=== PATIENT | male | born 1940 | race Caucasian/White ===

== ENCOUNTER 2016-11-10 05:37 | Inpatient (IN) | payer MEDICARE ==
--- NOTE | 2016-11-08 07:38 | MH ---
cc: JOYCE ANDREWS M.D. DATE OF ADMISSION: 11/10/2016 ADMITTING DIAGNOSIS: The patient is a 76-year-old male who is coming for a cardiac catheterization. The patient has noted some discomfort in his chest with activity. He did have a nuclear stress test showing no reversible inferior ischemia. He has a long history of coronary artery disease having had coronary bypass grafting in 1989. At that time he has a GILLESPIE to the LAD, A SALLY to the RCA And a saphenous vein graft to the marginal branch of the circumflex. The patient did have cardiac catheterization in August 2011. He had a stent deployed in the [place] circumflex at that time. He did well following that up until recent episodes of chest pain. At the time of catheterization the LAD was totally occluded though once bypass to the right coronary artery was totally occluded in the midportion but has collaterals. The vein graft to the circumflex was a totally occluded. It is known that the right internal mammary artery is totally occluded. PAST MEDICAL HISTORY/ALLERGIES: None known. MEDICATIONS 1. Metoprolol succinate 100 mg a day. 2. Hydrochlorothiazide 12.5 mg a day. 3. Benazepril 40 mg a day. 4. Atorvastatin 40 mg a day. 5. Amlodipine 10 mg a day. 6. Aspirin 81 mg a day. 7. Meloxicam 15 mg a day 8. Fish oil p.o. 9. Nitro. PAST SURGICAL HISTORY: In addition to this heart surgeries. 1. Tonsillectomy. 2. Cataracts 3. Ear surgery. FAMILY HISTORY: Family history is father of heart disease at the age of 75. His mother old age at the age of 85. SOCIAL HISTORY The patient stopped smoking in 1989. He is . Dr. Vanessa is his primary care physician. He worked on [employer]. PHYSICAL EXAMINATION: IN GENERAL: On examination pleasant cooperative male resting comfortably in no distress. HEAD, EYES, EARS, NOSE, AND THROAT: Pupils react to light. Fundi not examined. Tongue is moist midline. LUNGS: The lungs were clear. HEART: There is grade 1 systolic murmur. ABDOMEN: The abdomen is soft no liver or spleen palpable. He has weakly palpable distal pulses. He does wear hearing aid. IMPRESSION 1. Angina pectoris. 2. Status post coronary bypass grafting 1989 and prior stenting of circumflex. 3. Hypertension. 4. Hyperlipidemia. PLAN Diagnostic catheterization and possible intervention. MD SAMIA Tena/joie /11:42 AM /7:35 AM
[2016-11-10] VITALS (10 sets, daily range): BP systolic 99–155; BP diastolic 45–95; PULSE 65–81; RESP 17–20; TEMP 97.9–98.2; O2SAT 95–99
[~2016-11-10 05:37] MED LIST: 1-ME1LIQ PO; ASPI81 PO; BENA40TA PO; CLOP75 PO; FISH1000 PO; HYDR-2768 PO; LIPI40TA PO; NIAC500T5 PO; TOPR50TA PO
[2016-11-10 06:15] LABS: AUTOMATED NEUTROPHIL # 4.8 TH/MM3 (1.8-7.7); BASOPHIL # 0.1 TH/MM3 (0-0.2); EOSINOPHIL # 0.5 TH/MM3 (0-0.4); EOSINOPHIL % 5.7 % (0.0-4.0); HEMATOCRIT 46.3 % (39.0-51.0); HEMO FLAGS DIFF FINAL; LYMPH % 20.3 % (9.0-44.0); LYMPHOCYTE # 1.6 TH/MM3 (1.0-4.8); MEAN CELL VOLUME 94.4 FL (80.0-100.0); MEAN CORPUSCULAR HEMOGLOBIN 32.4 PG (27.0-34.0); MEAN CORPUSCULAR HGB CONC 34.3 % (32.0-36.0); MONO % 12.7 % (0.0-8.0); NEUT % 60.3 % (16.0-70.0); PLATELET COUNT 151 TH/MM3 (150-450); RED BLOOD COUNT 4.91 MIL/MM3 (4.50-5.90); RED CELL DISTRIBUTION WIDTH 13.9 % (11.6-17.2); WHITE BLOOD COUNT 7.9 TH/MM3 (4.0-11.0)
[2016-11-10] MEDS ORDERED: MELO-1 PO (06:19)
[2016-11-10] MEDS ORDERED: HYDR12.56 PO (06:19)
[2016-11-10] MEDS ORDERED: BENA40TA PO (06:19)
[2016-11-10] MEDS ORDERED: ASPI81TA5 PO (06:19)
[2016-11-10] MEDS ORDERED: NITR0.4S SL (06:19)
[2016-11-10] MEDS ORDERED: LIPI40TA PO (06:19)
[2016-11-10] MEDS ORDERED: METO100T9 PO (06:19)
[2016-11-10] MEDS ORDERED: AMLO10TA2 PO (06:19)
[2016-11-10 06:30] LABS: APTT (PATIENT) 28.9 SEC (24.3-30.1); INTERNATIONAL NORMALIZED RATIO 1.1 RATIO; PROTHROMBIN TIME - PATIENT 11.7 SEC (9.8-11.6)
[2016-11-10 06:42] LABS: BICARBONATE 26.4 MEQ/L (21.0-32.0); POTASSIUM 3.8 MEQ/L (3.5-5.1)
[2016-11-10] MEDS ORDERED: HEPARIN-NS/PF INJ 500 ML ONE (07:08)
[2016-11-10] MEDS ORDERED: MIDAZOLAM HCL 2 MG/2 ML VIAL ONE (07:16)
[2016-11-10] MEDS ORDERED: ENOXAPARIN SODIUM 100 MG/ML SYRINGE ONE (08:02)
[2016-11-10] MEDS ORDERED: DOPamine INJ PREMIX 500 ML ONE (08:35)
[2016-11-10] MEDS ORDERED: CLOPIDOGREL 300 MG TAB ONE (09:01)
[2016-11-10] MEDS ORDERED: MISC INFORMATION XX ONE (09:15)
[2016-11-10] MEDS: NS 1000P @30 MLS/HR (KVO) IV SCH (10:00)
[2016-11-10] MEDS ORDERED: BOSW5TAB PO (11:43)
[2016-11-10] MEDS ORDERED: DICY20TA10 PO (11:43)
[2016-11-10] MEDS ORDERED: ENOXAPARIN SODIUM 60 MG/0.6 ML SYRINGE SQ ONE ×2 (11:45→18:00)
--- NOTE | 2016-11-10 13:23 | MA ---
cc: JOYCE ANDREWS M.D. DATE 11/10/2016 PROCEDURE Left heart catheterization, coronary angiography, left internal mammary angiography, stenting of the marginal branch of the circumflex, insertion ventrally balloon pump. INDICATIONS Angina, abnormal nuclear stress test status post CABG in 1989. PROCEDURE Following Xylocaine anesthesia in the right groin, a 6-Honduran sheath was placed in the right femoral artery via Seldinger's technique. The left internal mammary could not be selectively catheterized with a left internal mammary artery catheter. The [place] right coronary was selectively catheterized. Using a 6-Honduran four right Gilberto, the left internal mammary was selectively catheterized and cineangiograms were recorded. This catheter was advanced to the left ventricle and a hand injection of contrast was performed. Using a 6-Honduran left 4 Gilberto, the left coronary was selectively catheterized and cineangiograms were recorded. The patient was given Lovenox 0.7 mg/kg intravenously. A 6-Honduran 3.5 Voda guiding catheter was positioned in the left groin area artery and an 0.014 BMW wire was advanced to the distal aspect of the marginal branch of the circumflex. There were multiple previously deployed stents in this vessel. There were multiple areas of stenosis. These were ballooned with a 3.0 balloon, however a cosmetic result was less than optimal. A 3.0 x 23 mm Resolute drug-eluting stent was deployed in the distal part of the vessel covering the 80% stenosis in the midportion. This stent could not be advanced more distally. A 3.0 x 12 mm stent could not be advanced more distally even though a 3.5 balloon was used to predilate this and a Wiggle wire replaced the BMW. The 3.0 x 12 mm was deployed proximal to the first stent. Following this, the patient developed chest pain with hypotension (60-70mmHg) and decreased flow in the distal aspect of the vessel. The patient was started on dopamine and it was elected to place an intraaortic balloon pump. The pressure did improve and he was taken off dopamine. He was transported to intensive care with the balloon pump in place. Chest pain had markedly decreased. It was elected to stop though the distal flow in OM was HILARIO 0. It was felt that distal embolization may be the culprit and it would resolve. HEMODYNAMIC RESULTS Central aortic pressure 146/62. Left ventricular pressure 146/16. There was no gradient on pullback across the aortic valve. Left ventriculogram was suboptimal. There was a hand injection of contrast. The ejection fraction appeared to be about 40- 45%. BYPASS GRAFTS 1. The patient has a patent left internal mammary to the LAD. There is good filling of the target vessel. 2. The right internal mammary was not injected, but is known to be occluded. 3. Vein graft to the circumflex is known to be occluded. [place] CORONARY ARTERIES 1. The left main coronary is normal. 2. The left anterior descending is totally occluded in the Midportion. 3. Circumflex has a large marginal branch with multiple previously deployed stents. There were significant area stenosis with the proximal portion of 60-70%, midportion 80% and more distally 80% just prior to a bifurcation. Two of the stents were deployed as described above. Vessel was occlude distal to these stents. 4. The right coronary artery is totally occluded proximally with faint collateral filling. FINAL DIAGNOSES 1. Three-vessel coronary artery disease as described above. 2. Patent left internal mammary to LAD with all other grafts being occluded. 3. Diffuse significant in-stent stenosis in the marginal branch of the circumflex. This was angioplastied and stented though results suboptimal as described above. MD SAMIA Tena/PARKER /10:19 AM /1:02 PM MORIAH
--- NOTE | 2016-11-10 13:47 | EKG ---
Date Performed: 11/10/2016 Time Performed: 11:14:50 PTAGE: 76 years EKG: Sinus rhythm . Possible septal infarct - age undetermined Nonspecific ST segment depressions Abnormal ECG COMPARED TO PRIOR ELECTROCARDIOGRAM, ST segment changes are present. PREVIOUS TRACING : 11/10/2016 06.16 DOCTOR: Guerrero Olivares Interpretating Date/Time 11/10/2016 13:43:36
--- NOTE | 2016-11-10 13:58 | EKG ---
Date Performed: 11/10/2016 Time Performed: 06:16:48 PTAGE: 76 years EKG: Sinus rhythm . Poor R wave progression - probable normal variant Borderline ECG Compared to prior tracing no signi ficant change PREVIOUS TRACING : 09/13/2011 04.40 DOCTOR: Josep Resendiz Interpretating Date/Time 11/10/2016 13:56:32
[2016-11-10] MEDS ORDERED: METOPROLOL SUCCINATE 25 MG EXTENDED RELEASE TAB PO SCH ×2 (15:00)
[2016-11-10 15:26] LABS: BICARBONATE 25.9 MEQ/L (21.0-32.0); POTASSIUM 3.7 MEQ/L (3.5-5.1)
--- NOTE | 2016-11-10 16:44 | EC ---
Study Study Date:11/10/2016 STUDY CONCLUSIONS SUMMARY - Procedure narrative: Transthoracic echocardiography. Image quality was fair. Scanning was performed from the parasternal, apical, and subcostal acoustic windows. - Left ventricle: The cavity size was normal. Wall thickness was normal. Systolic function was normal. The estimated ejection fraction was in the range of 55% to 60%. Although no diagnostic regional wall motion abnormality was identified, this possibility cannot be completely excluded on the basis of this study. - Aortic valve: Slight leaflet sclerosis. - Mitral valve: Trace to mild regurgitation. If LV function is below 40, please consider prescribing an ACEI or ARB or document rationale for non-use. PROCEDURE DATA STUDY STATUS: Elective. Procedure: Transthoracic echocardiography. Image quality was fair. Scanning was performed from the parasternal, apical, and subcostal acoustic windows. Study completion: The patient tolerated the procedure well. Transthoracic echocardiography. M-mode, complete 2D, complete spectral Doppler, and color Doppler. Patient status: Inpatient. CARDIAC ANATOMY LEFT VENTRICLE: The cavity size was normal. Wall thickness was normal. Systolic function was normal. The estimated ejection fraction was in the range of 55% to 60%. Although no diagnostic regional wall motion abnormality was identified, this possibility cannot be completely excluded on the basis of this study. AORTIC VALVE: Slight leaflet sclerosis. Doppler: Transvalvular velocity was within the normal range. There was no stenosis. No regurgitation. Peak gradient: 12mm Hg (S). AORTA: Aortic root: The aortic root was normal in size. MITRAL VALVE: Structurally normal valve. Doppler: Transvalvular velocity was within the normal range. There was no evidence for stenosis. Trace to mild regurgitation. LEFT ATRIUM: The atrium was normal in size. RIGHT VENTRICLE: The cavity size was normal. Wall thickness was normal. PULMONIC VALVE: Doppler: Transvalvular velocity was within the normal range. There was no evidence for stenosis. No regurgitation. TRICUSPID VALVE: Structurally normal valve. Doppler: Transvalvular velocity was within the normal range. No regurgitation. PULMONARY ARTERY: The main pulmonary artery was normal-sized. Systolic pressure was within the normal range. RIGHT ATRIUM: The atrium was normal in size. PERICARDIUM: There was no pericardial effusion. SYSTEMIC VEINS: Inferior vena cava: The vessel was normal in size. BASIC MEASUREMENTS ADULT NORMAL Left ventricle LV internal dimension, ED, chordal level, 47.4 mm 43-52 PLAX LV internal dimension, ES, chordal level, 37.7 mm 23-38 PLAX Fractional shortening, chordal level, PLAX *20 % >29 LV posterior wall thickness, ED 5.75 mm IVS/LVPW ratio, ED *2.1 <1.3 Ventricular septum Septal thickness, ED 12.1 mm Aortic valve Leaflet separation 17 mm 15-26 Left atrium Anterior-posterior dimension 43 mm Right ventricle RV internal dimension, ED, PLAX 19.1 mm 19-38 BASIC MEASUREMENTS ADULT NORMAL Aortic valve Leaflet separation 17 mm 15-26 Aorta Root diameter, ED 30 mm 20-37 DOPPLER MEASUREMENTS ADULT NORMAL Aortic valve Peak velocity, S 171 cm/s Peak gradient, S 12 mm Hg Mitral valve Maximal regurgitant velocity 448 cm/s Tricuspid valve Regurgitant peak velocity 159 cm/s Peak RV-RA gradient, S 10 mm Hg Maximal regurgitant velocity 159 cm/s LEGEND: Mean values are shown as u=mean value. Asterisk (*) garcia values outside specified normal range. Prepared and signed by Sal Melton [id number]
[2016-11-10] MEDS ORDERED: IOHEXOL 350 MG/ML 100 ML BTL (for Cath Lab) OTHER ONE (16:57)
[2016-11-10] MEDS ORDERED: LISINOPRIL 5 MG TAB PO SCH (18:00)
[2016-11-10] MEDS ORDERED: ENOXAPARIN SODIUM 40 MG/0.4 ML SYRINGE SQ ONE (20:00)
[2016-11-11] VITALS (12 sets, daily range): BP systolic 123–142; BP diastolic 69–82; PULSE 74–107; RESP 18–20; TEMP 97.9–98.4; O2SAT 94–100
[2016-11-11 04:04] LABS: AUTOMATED NEUTROPHIL # 8.2 TH/MM3 (1.8-7.7); BASOPHIL # 0.1 TH/MM3 (0-0.2); BASOPHIL % 0.5 % (0.0-2.0); EOSINOPHIL # 0.2 TH/MM3 (0-0.4); EOSINOPHIL % 1.5 % (0.0-4.0); HEMATOCRIT 42.9 % (39.0-51.0); HEMO FLAGS DIFF FINAL; LYMPH % 9.7 % (9.0-44.0); MEAN CELL VOLUME 93.8 FL (80.0-100.0); MEAN CORPUSCULAR HEMOGLOBIN 31.5 PG (27.0-34.0); MEAN CORPUSCULAR HGB CONC 33.6 % (32.0-36.0); MONO % 11.2 % (0.0-8.0); NEUT % 77.1 % (16.0-70.0); PLATELET COUNT 130 TH/MM3 (150-450); RED BLOOD COUNT 4.58 MIL/MM3 (4.50-5.90); WHITE BLOOD COUNT 10.6 TH/MM3 (4.0-11.0)
[2016-11-11 04:35] LABS: CKMB 79.1 NG/ML (0.5-3.6)
[2016-11-11] MEDS: NS 1000P @30 MLS/HR (KVO) IV SCH (06:00)
--- NOTE | 2016-11-11 06:43 | PD.CARD.PN ---
Subjective Subjective Remarks Patient is doing well this morning. He is sitting in chair. No chest pain or shortness of breath. Objective Medications Current Medications Medications (Trade) Dose Ordered Sig/Misael Route Start Time Stop Time Status Last Admin (NS 1000 ml Inj) 1,000 ml @ 30 mls/hr Q24H IV 11/10/16 06:00 11/10/16 10:00 (Aspirin Chew) 81 mg DAILY PO 11/11/16 09:00 (Plavix) 75 mg DAILY PO 11/11/16 09:00 (Toprol Xl) 25 mg Q24H PO 11/10/16 15:00 11/10/16 15:13 (Lipitor) 40 mg DAILY PO 11/11/16 09:00 Vital Signs / I&O Vital Signs Date Time Temp Pulse Resp B/P Pulse Ox O2 Delivery O2 Flow Rate FiO2 11/11/16 03:00 75 11/11/16 03:00 94 Nasal Cannula 2.00 11/11/16 03:00 98.4 107 18 140/74 94 11/10/16 23:00 78 11/10/16 23:00 95 Nasal Cannula 2.00 11/10/16 23:00 97.9 77 20 132/70 95 Arterial Line 11/10/16 22:27 96 Nasal Cannula 2.00 11/10/16 19:00 98.1 81 18 145/74 96 Arterial Line 11/10/16 19:00 81 11/10/16 19:00 96 Nasal Cannula 2.00 11/10/16 17:04 11/10/16 17:04 95 Nasal Cannula 2.00 11/10/16 15:05 76 11/10/16 15:03 114/50 11/10/16 15:03 98.2 77 18 119/69 96 110/50 11/10/16 14:30 11/10/16 14:00 98/45 11/10/16 13:00 103/51 11/10/16 12:00 97 Nasal Cannula 2.00 11/10/16 12:00 93/45 11/10/16 11:02 98.1 69 18 149/95 98 99/45 11/10/16 11:02 99/45 11/10/16 11:00 70 11/10/16 10:00 97.9 71 18 135/85 96 100/53 11/10/16 10:00 100/53 4/27/17 10:00 96 Nasal Cannula 2.00 11/10/16 09:40 69 I/O 11/10/16 11/10/16 11/10/16 11/11/16 11/11/16 11/11/16 07:00 15:00 23:00 07:00 15:00 23:00 Intake Total 720 ml Output Total 550 ml Balance 170 ml Intake Oral 720 ml Output Urine Total 550 ml Physical Exam GENERAL: SKIN: Warm and dry. HEAD: Normocephalic. EYES: No scleral icterus. No injection or drainage. NECK: Supple, trachea midline. No JVD or lymphadenopathy. CARDIOVASCULAR: Regular rate and rhythm without murmurs, gallops, or rubs. groin lools fine witrh no hematoma.Weakly palpable distal pulses. RESPIRATORY: Breath sounds equal bilaterally. No accessory muscle use. GASTROINTESTINAL: Abdomen soft, non-tender, nondistended. MUSCULOSKELETAL: No cyanosis, or edema. Laboratory Laboratory Tests Test 11/10/16 11/11/16 14:38 03:54 Sodium Level 139 MEQ/L Potassium Level 3.7 MEQ/L Chloride Level 105 MEQ/L Carbon Dioxide Level 25.9 MEQ/L Anion Gap 8 MEQ/L Blood Urea Nitrogen 11 MG/DL Creatinine 0.76 MG/DL Estimat Glomerular Filtration 100 ML/MIN Rate Random Glucose 142 MG/DL Calcium Level 8.7 MG/DL Troponin I 24.40 NG/ML White Blood Count 10.6 TH/MM3 Red Blood Count 4.58 MIL/MM3 Hemoglobin 14.4 GM/DL Hematocrit 42.9 % Mean Corpuscular Volume 93.8 FL Mean Corpuscular Hemoglobin 31.5 PG Mean Corpuscular Hemoglobin 33.6 % Concent Red Cell Distribution Width 14.0 % Platelet Count 130 TH/MM3 Mean Platelet Volume 10.7 FL Neutrophils (%) (Auto) 77.1 % Lymphocytes (%) (Auto) 9.7 % Monocytes (%) (Auto) 11.2 % Eosinophils (%) (Auto) 1.5 % Basophils (%) (Auto) 0.5 % Neutrophils # (Auto) 8.2 TH/MM3 Lymphocytes # (Auto) 1.0 TH/MM3 Monocytes # (Auto) 1.2 TH/MM3 Eosinophils # (Auto) 0.2 TH/MM3 Basophils # (Auto) 0.1 TH/MM3 CBC Comment DIFF FINAL Differential Comment Total Creatine Kinase 925 U/L Creatine Kinase MB 79.1 NG/ML Creatine Kinase MB % 8.6 % Assessment and Plan Assessment and Plan Nonstemi. Hopefully OM reopened as lateral and posterior wall motion normal on echo. I will transfer today. Hopefully discharge tonight or in AM. Increase metoprolol to 50 mg daily. Code Status Full code Discussed Condition With Patient. Family here last evening and discussed with them also. Feroz Hillman MD Nov 11, 2016 06:43
[2016-11-11] MEDS ORDERED: ATORVASTATIN 40 MG TAB PO SCH (09:00)
[2016-11-11] MEDS ORDERED: CLOPIDOGREL 75 MG TAB PO SCH (09:00)
[2016-11-11] MEDS ORDERED: ASPIRIN 81 MG CHEW TAB PO SCH (09:00)
[2016-11-11] MEDS ORDERED: ENOXAPARIN SODIUM 40 MG/0.4 ML SYRINGE SQ SCH (09:00)
[2016-11-11] MEDS ORDERED: METOPROLOL SUCCINATE 25 MG EXTENDED RELEASE TAB PO SCH (15:00)
[2016-11-11] MEDS ORDERED: PLAV75TA29 PO (17:35)
[2016-11-11] MEDS ORDERED: METO25TA6 PO (17:38)
[2016-11-11] MEDS ORDERED: METOPROLOL SUCCINATE 50 MG EXTENDED RELEASE TAB PO SCH (17:45)
--- NOTE | 2016-11-14 12:37 | MD ---
cc: JOYCE ANDREWS M.D. ADMISSION DATE: 11/10/2016 DISCHARGE DATE: 11/11/2016 ADMITTING DIAGNOSIS 1. Angina pectoris. 2. Coronary artery disease. 3. Hypertension. 4. Hyperlipidemia. DISCHARGE DIAGNOSIS 1. Angina pectoris. 2. Coronary artery disease. 3. Hypertension. 4. Hyperlipidemia. 5. Non-STEMI. BRIEF HISTORY The patient is a 76-year-old male who was admitted for elective cardiac catheterization. The patient is having increasing angina which is a discomfort in the chest with activity. He had an abnormal nuclear stress test showing reversible inferior ischemia. He has a long history of coronary disease having had bypass surgery in 1989. At that time he had an SALLY to the RCA, GILLESPIE to the LAD and a saphenous vein graft to the circumflex. Follow-up catheterization in 2002 stated that the SALLY to the right coronary artery was occluded. He also had occlusion of the vein graft to the circumflex, although the GILLESPIE to the LAD was open. He has had multiple stents placed in the circumflex in the past. On examination this is a pleasant and cooperative male resting comfortably in no distress. Pupils react to light. Fundi not examined. Tongue is moist and midline. Lungs clear. He has a grade 1 systolic murmur. The abdomen is soft. He has weakly palpable distal pulses. He does wear a hearing aid. LABORATORY DATA The patient's sodium was 142, potassium 3.8, blood sugar 120, BUN 19, creatinine 0.92, hemoglobin 15.9, hematocrit 46.3, platelet count 151,000. HOSPITAL COURSE The patient was taken to the cardiac catheterization laboratory. He was found to have a patent GILLESPIE to the LAD. He had total occlusion of the LAD in the midportion. He had total occlusion of the right coronary artery proximally. The craig circumflex had multiple stents in the marginal branch. There were three areas of restenosis. The proximal areas were stented, however, stent could not be advanced to the more distal level though it was angioplastied. During the deployment of a proximal stent, the patient developed chest pain and hypotension. The angiogram showed the circumflex now had HILARIO-0 flow at the level of a previously deployed stent. It was not clear whether this was embolic debris or a possible dissection. An intra-aortic balloon pump was placed after dopamine was started. The pressure was down to 60 but after the balloon pump stabilized his chest pain did improve. He then developed elevated enzymes with a CPK of 925, a CK-MB of 79, troponin, 24.4, repeat 25.40. An electrocardiogram did not show acute changes however. He also had an echocardiogram performed after this, which showed ejection fraction of 55-60%. The posterior and lateral tena moved normally. It was felt that possibly the circumflex had re-opened. The intra-aortic balloon pump was pulled the evening of the . He had no chest pains or no problems with shortness of breath. DISCHARGE INSTRUCTIONS He is being discharged on: 1. Metoprolol succinate 50 mg a day. 2. Aspirin 81 mg a day. 3. Clopidogrel 75 mg a day. 4. Atorvastatin 80 mg a day. 5. He will resume his benazepril 40 mg a day and 6. Hydrochlorothiazide 12.5 mg a day. 7. We will hold his amlodipine at this time. 8. He will continue his meloxicam. He has been instructed to call my office for follow-up appointment within 7-10 days. He is advised to restrict activity for the next week. If he has any recurrent chest pains, he has been advised to call the office. MD SAMIA Tena/MAGALY /5:47 PM /12:24 PM
== END 2016-11-11 18:22 | disposition home or self-care (01) | DRG 271 ==
LOC: HDOC 05:37 → HDIC 05:38 → HDOC 09:14 → HDIC 09:32 → HCVR 09:40 → HCIS 11-11 11:59
PROVIDERS: ADMIT Internal Medicine Cardiovascular Disease; ATTEND Internal Medicine Cardiovascular Disease
PROC: 5A02210 Assistance with Cardiac Output using Balloon Pump, Continuous (ICD-10-PCS; 2016-11-10)
PROC: 4A023N7 Measurement of Cardiac Sampling and Pressure, Left Heart, Percutaneous Approach (ICD-10-PCS; 2016-11-10)
PROC: B2111ZZ Fluoroscopy of Multiple Coronary Arteries using Low Osmolar Contrast (ICD-10-PCS; 2016-11-10)
PROC: B2181ZZ Fluoroscopy of Left Internal Mammary Bypass Graft using Low Osmolar Contrast (ICD-10-PCS; 2016-11-10)
PROC: B2151ZZ Fluoroscopy of Left Heart using Low Osmolar Contrast (ICD-10-PCS; 2016-11-10)
PROC: 027034Z Dilation of Coronary Artery, One Artery with Drug-eluting Intraluminal Device, Percutaneous Approach (ICD-10-PCS; principal; 2016-11-10 07:30)
DX: I21.4 Non-ST elevation (NSTEMI) myocardial infarction (principal); T82.855A Stenosis of coronary artery stent, initial encounter; I95.89 Other hypotension; I25.82 Chronic total occlusion of coronary artery; I25.810 Atherosclerosis of coronary artery bypass graft(s) without angina pectoris; I25.119 Atherosclerotic heart disease of native coronary artery with unspecified angina pectoris; E78.5 Hyperlipidemia, unspecified; I10 Essential (primary) hypertension; Z87.891 Personal history of nicotine dependence; Y83.1 Surgical operation with implant of artificial internal device as the cause of abnormal reaction of the patient, or of later complication, without mention of misadventure at the time of the procedure
CPT/HCPCS: 33967; 80048; 82550; 82552; 84484; 85025; 85610; 85730; 92928; 93005; 93306; 93458; C1725; C1769; C1874; C1887; C1893; J1265; J1644; J1650; J2250; J7030; Q9967

== ENCOUNTER 2017-04-13 14:39 | Inpatient (IN) | payer MEDICARE ==
[~2017-04-13] VITALS: Ht 175.3 cm; Wt 81.4 kg
[~2017-04-13 14:39] MED LIST changes: -1-ME1LIQ PO; -ASPI81 PO; +ASPI81TA5 PO; +BOSW5TAB PO; -CLOP75 PO; +DICY20TA10 PO; -FISH1000 PO; -HYDR-2768 PO; +HYDR12.56 PO; +MELO-1 PO; +METO25TA6 PO; -NIAC500T5 PO; +NITR0.4S SL; +PLAV75TA29 PO; -TOPR50TA PO
[2017-04-13 14:45] VITALS: BP 125/61; PULSE 81; RESP 16; TEMP 98.5; O2SAT 99
[2017-04-13] MEDS ORDERED: PANTOPRAZOLE INJ 80 MG in SODIUM CHLORIDE 0.9% INJ 35 ML IV ONE (16:05)
[2017-04-13] MEDS ORDERED: SODIUM CHLOR 0.9% 1000 ML INJ 1,000 ML IV ONE (16:15)
[2017-04-13] MEDS ORDERED: SODIUM CHLORIDE 0.9% FLUSH 10 ML FLUSH IVF PRN (16:15)
--- NOTE | 2017-04-13 16:16 | PD ---
HPI Chief Complaint: GI Complaint Time Seen by Provider: 15:53 Travel History International Travel<30 days: No Contact w/Intl Traveler<30days: No Traveled to known affect area: No History of Present Illness HPI This 76-year-old male is complaining of shortness of breath and dizziness. He says he has had black stool for the past week he has a history of coronary artery disease. He had triple bypass surgery in 1989. Since then he has had about 7 stents. His last stent was last October at which time he apparently had a myocardial infarction. He had a stent placed and was told that he needs to be on Plavix for the next year. He is taking the Plavix and aspirin. Apparently he had a positive Hemoccult several months ago. He is not on any medicine for ulcer. He does take meloxicam daily he has no complaint of abdominal pain. He has not been taking Pepto-Bismol. 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) Neurologic: No Psychiatric: No Reproductive: No Respiratory: No Integumentary: No Immunizations Current: Yes Myocardial Infarction: Yes Thyroid Disease: No Influenza Vaccination: Yes Past Surgical History Cardiac Surgery: Yes (bypass and multiple stents.) Thoracic Surgery: Yes (CABG) Tonsillectomy: Yes Other Surgery: Yes (RIGHT EYE, LEFT EAR) Social History Alcohol Use: Yes (SOCIALLY) Tobacco Use: No Substance Use: No Allergies-Medications (Allergen,Severity, Reaction): Coded Allergies: No Known Allergies (Verified , 04/13/17) Reported Meds & Prescriptions Reported Meds & Active Scripts Active Metoprolol Succinate ER 24 HR (Metoprolol Succinate) 25 Mg Tab 50 Mg PO Q24H Plavix (Clopidogrel Bisulfate) 75 Mg Tab 75 Mg PO DAILY Reported Dicyclomine (Dicyclomine HCl) 20 Mg Tab 20 Mg PO Q6HR PRN Osteo Bi-Flex One A Day (Ckvlaujeu-Rmyxusxsbov-Vyowivn) 1 Tab 2 Tab PO DAILY Aspirin DR (Aspirin) 81 Mg Tabdr 81 Mg PO DAILY Lipitor (Atorvastatin Calcium) 40 Mg Tab 80 Mg PO DAILY Benazepril (Benazepril HCl) 40 Mg Tab 40 Mg PO DAILY Meloxicam 15 Mg Tab 15 Mg PO DAILY Hydrochlorothiazide 12.5 Mg Tab 12.5 Mg PO DAILY Nitrostat SL (Nitroglycerin) 0.4 Mg Subl 0.4 Mg SL DIRECTED PRN 1 tablet under the tongue as needed for chest pain. Repeat every 5 minutes for a total of 3 DOSES or call 911 if NO relief. Review of Systems General / Constitutional: No: Fever, Chills Eyes: No: Diploplia HENT: Positive: Lightheadedness, No: Headaches, Vertigo Cardiovascular: No: Chest Pain or Discomfort, Palpitations Respiratory: Positive: Shortness of Breath, No: Cough Gastrointestinal: No: Nausea, Vomiting Genitourinary: No: Urgency, Frequency Musculoskeletal: No: Myalgias Skin: No Rash, No Itching Neurologic: Positive: Weakness, Dizziness, No: Syncope Psychiatric: No: Anxiety Hematologic/Lymphatic: No: Easy Bruising Physical Exam Narrative GENERAL: Well-developed male SKIN: Focused skin assessment warm/dry. HEAD: Atraumatic. Normocephalic. EYES: Pupils equal and round. No scleral icterus. No injection or drainage. ENT: No nasal bleeding or discharge. Mucous membranes pink and moist. NECK: Trachea midline. No JVD. CARDIOVASCULAR: Regular rate and rhythm. No murmur appreciated. RESPIRATORY: No accessory muscle use. Clear to auscultation. Breath sounds equal bilaterally. GASTROINTESTINAL: Abdomen soft, non-tender, nondistended. Hepatic and splenic margins not palpable. Rectal exam his stool is black and guaiac positive MUSCULOSKELETAL: No obvious deformities. No clubbing. No cyanosis. No edema. NEUROLOGICAL: Awake and alert. No obvious cranial nerve deficits. Motor grossly within normal limits. Normal speech. PSYCHIATRIC: Appropriate mood and affect; insight and judgment normal. Data Data Last Documented VS Vital Signs Date Time Temp Pulse Resp B/P (MAP) Pulse Ox O2 Delivery O2 Flow Rate FiO2 04/13/17 16:24 84 18 113/70 (84) 96 Room Air 04/13/17 14:45 98.5 Orders Orders Complete Blood Count With Diff (04/13/17 16:05) Comprehensive Metabolic Panel (04/13/17 16:05) Prothrombin Time / Inr (Pt) (04/13/17 16:05) Act Partial Throm Time (Ptt) (04/13/17 16:05) Urinalysis - C+S If Indicated (04/13/17 16:05) Type And Screen (04/13/17 16:05) Chest, Single Ap (04/13/17 16:05) Ecg Monitoring (04/13/17 16:05) Iv Access Insert/Monitor (04/13/17 16:05) Oximetry (04/13/17 16:05) Sodium Chlor 0.9% 1000 Ml Inj (Ns 1000 M (04/13/17 16:15) Sodium Chloride 0.9% Flush (Ns Flush) (04/13/17 16:15) Sodium Chloride 0.9... W/Pantoprazole In (04/13/17 16:05) Sodium Chloride 0.9... W/Pantoprazole In (04/13/17 16:05) B-Type Natriuretic Peptide (04/13/17 16:05) Electrocardiogram (04/13/17 ) Admit Order (Ed Use Only) (04/13/17 17:36) Labs Laboratory Tests Test 04/13/17 16:15 04/13/17 16:20 Urine Color YELLOW Urine Turbidity CLEAR Urine pH 5.5 Urine Specific [place] 1.019 Urine Protein NEG mg/dL Urine Glucose (UA) NEG mg/dL Urine Ketones NEG mg/dL Urine Occult Blood NEG Urine Nitrite NEG Urine Bilirubin NEG Urine Leukocyte Esterase NEG Urine RBC 0-3 /hpf Urine WBC 0-2 /hpf Urine Squamous Epithelial Cells 0-5 /hpf Microscopic Urinalysis Comment CULT NOT INDICATED White Blood Count 11.4 TH/MM3 Red Blood Count 3.16 MIL/MM3 Hemoglobin 9.8 GM/DL Hematocrit 30.0 % Mean Corpuscular Volume 95.0 FL Mean Corpuscular Hemoglobin 31.1 PG Mean Corpuscular Hemoglobin Concent 32.8 % Red Cell Distribution Width 14.6 % Platelet Count 220 TH/MM3 Mean Platelet Volume 9.5 FL Neutrophils (%) (Auto) 73.6 % Lymphocytes (%) (Auto) 14.4 % Monocytes (%) (Auto) 8.2 % Eosinophils (%) (Auto) 3.2 % Basophils (%) (Auto) 0.6 % Neutrophils # (Auto) 8.4 TH/MM3 Lymphocytes # (Auto) 1.6 TH/MM3 Monocytes # (Auto) 0.9 TH/MM3 Eosinophils # (Auto) 0.4 TH/MM3 Basophils # (Auto) 0.1 TH/MM3 CBC Comment DIFF FINAL Differential Comment Prothrombin Time 11.4 SEC Prothromb Time International Ratio 1.0 RATIO Activated Partial Thromboplast Time 25.4 SEC Blood Urea Nitrogen 40 MG/DL Creatinine 1.20 MG/DL Random Glucose 98 MG/DL Total Protein 7.0 GM/DL Albumin 3.9 GM/DL Calcium Level 8.7 MG/DL Alkaline Phosphatase 66 U/L Aspartate Amino Transf (AST/SGOT) 19 U/L Alanine Aminotransferase (ALT/SGPT) 23 U/L Total Bilirubin 0.5 MG/DL Sodium Level 136 MEQ/L Potassium Level 3.9 MEQ/L Chloride Level 102 MEQ/L Carbon Dioxide Level 26.3 MEQ/L Anion Gap 8 MEQ/L Estimat Glomerular Filtration Rate 59 ML/MIN B-Type Natriuretic Peptide 184 PG/ML MDM Medical Decision Making Medical Screen Exam Complete: Yes Emergency Medical Condition: Yes Medical Record Reviewed: Yes Differential Diagnosis Differential includes GI bleed, anemia Narrative Course Patient takes meloxicam daily and is on aspirin and Plavix. His stool is black and guaiac positive. His hemoglobin today is 9.8 he is having some symptoms of dyspnea and lightheadedness. Most likely an upper GI bleed. He has been started on Protonix Diagnosis Primary Impression: GI bleed Additional Impression: Acute blood loss anemia Admitting Information Admitting Physician Requests: Observation Mesfin Rivera MD Apr 13, 2017 16:16
[2017-04-13 16:23] VITALS: O2SAT 97
[2017-04-13 16:24] VITALS: BP 113/70; PULSE 84; RESP 18; O2SAT 96
[2017-04-13 16:41] LABS: BLOOD, URINE NEG (NEG); GLUCOSE,URINE NEG (NEG); KETONE, URINE NEG (NEG); NITRITE,URINE NEG (NEG); PH, URINE 5.5 (5.0-8.5)
[2017-04-13 16:42] LABS: AUTOMATED NEUTROPHIL # 8.4 TH/MM3 (1.8-7.7); BASOPHIL # 0.1 TH/MM3 (0-0.2); BASOPHIL % 0.6 % (0.0-2.0); EOSINOPHIL # 0.4 TH/MM3 (0-0.4); EOSINOPHIL % 3.2 % (0.0-4.0); HEMO FLAGS DIFF FINAL; LYMPH % 14.4 % (9.0-44.0); LYMPHOCYTE # 1.6 TH/MM3 (1.0-4.8); MEAN CORPUSCULAR HEMOGLOBIN 31.1 PG (27.0-34.0); MEAN CORPUSCULAR HGB CONC 32.8 % (32.0-36.0); MONO % 8.2 % (0.0-8.0); NEUT % 73.6 % (16.0-70.0); PLATELET COUNT 220 TH/MM3 (150-450); RED BLOOD COUNT 3.16 MIL/MM3 (4.50-5.90); RED CELL DISTRIBUTION WIDTH 14.6 % (11.6-17.2); WHITE BLOOD COUNT 11.4 TH/MM3 (4.0-11.0)
[2017-04-13] MEDS: PANTOPRAZOLE INJ 80 MG in SODIUM CHLORIDE 0.9% INJ 100 ML IV SCH (16:46)
[2017-04-13 16:47] LABS: CHLORIDE 102 MEQ/L (98-107); POTASSIUM 3.9 MEQ/L (3.5-5.1); SODIUM (NA) 136 MEQ/L (136-145)
[2017-04-13 16:50] LABS: ANION GAP 8 MEQ/L (5-15); BICARBONATE 26.3 MEQ/L (21.0-32.0)
[2017-04-13 16:51] LABS: BLOOD UREA NITROGEN 40 MG/DL (7-18)
[2017-04-13 16:52] LABS: APTT (PATIENT) 25.4 SEC (24.3-30.1); PROTHROMBIN TIME - PATIENT 11.4 SEC (9.8-11.6)
[2017-04-13 16:53] LABS: ALT (GPT) 23 U/L (12-78)
[2017-04-13 16:54] LABS: AST (GOT) 19 U/L (15-37); GLOMERULAR FILTRATION RATE 59 ML/MIN (>89)
[2017-04-13 16:55] LABS: TOTAL BILIRUBIN ADULT 0.5 MG/DL (0.2-1.0)
[2017-04-13 16:56] LABS: ALKALINE PHOSPHATASE 66 U/L (45-117)
[2017-04-13 16:56] LABS: COMMENT (UR) CULT NOT INDICATED; CULTURE IF INDICATED CULT NOT INDICATED; RBC, URINE 0-3 /hpf (0-3); SQUAMOUS EPITHELIAL CELL URINE 0-5 /hpf (0-5); URINE COLOR YELLOW (YELLW/STRAW); WBC, URINE 0-2 /hpf (0-5)
--- NOTE | 2017-04-13 17:16 | RADRPT ---
EXAM DATE/TIME: 04/13/2017 17:04 [place] COMPARISON: No previous studies available for comparison. INDICATIONS : Short of breath. MEDICAL HISTORY : None. SURGICAL HISTORY : None. ENCOUNTER: Initial ACUITY: 1 day PAIN SCORE: 0/10 LOCATION: Bilateral chest FINDINGS: The heart is normal in size. The mediastinal contours are within normal limits. The patient is post m edian sternotomy. There are mild chronic interstitial changes within the pulmonary parenchyma. The lungs are otherwise clear. The visualized bony structures are intact. CONCLUSION: 1. No acute abnormality. Tolu Butts MD on April 13, 2017 at 17:13 Board Certified Radiologist. This report was verified electronically.
[2017-04-13] MEDS ORDERED: NALOXONE HCL 0.4 MG/ML AMP IV PUSH PRN (17:45)
[2017-04-13] MEDS ORDERED: ONDANSETRON HCL 4 MG/2 ML VIAL IVP PRN (17:45)
[2017-04-13] MEDS ORDERED: SODIUM CHLORIDE 0.9% FLUSH 10 ML FLUSH IV FLUSH PRN (17:45)
[2017-04-13] MEDS ORDERED: MORPHINE SULFATE 4 MG/ML INJ IV PUSH PRN (17:45)
--- NOTE | 2017-04-13 18:45 | HHI.HP ---
[facility] Service [facility] Primary Care Physician Polly Vanessa MD Admission Diagnosis GI BLEED, SYMPTOMATIC ANEMIA Diagnoses: (1) GI bleed (2) Acute blood loss anemia Diagnosis: Principal (3) Symptomatic anemia Diagnosis: Principal (4) Coronary artery disease Diagnosis: Secondary (5) Hyperlipidemia Diagnosis: Secondary (6) Hypertension Diagnosis: Secondary Travel History International Travel<30 Days: No Contact w/Intl Traveler <30 Da: No Traveled to Known Affected Are: No History of Present Illness Mr. Graham is a 76-year-old male. She reports a one-week history of black tarry stools. He says that recently he has become short of breath and is having difficulty doing things around the house due to his dyspnea with exertion. She has no prior history of GI bleed. However, he is on Plavix and aspirin secondary to coronary stents placed within the past year. He also takes meloxicam on a daily basis. Increased stressors have been in his life recently as his was hospitalized and on the vent for prolonged duration. He drinks alcohol socially but has not had any alcohol intake recently. No complaints of abdominal pain. No fevers, diarrhea, nausea, vomiting, or abdominal trauma. Review of Systems Constitutional: DENIES: Fatigue, Fever, Weight loss, Chills Eyes: DENIES: Diplopia, Eye inflammation, Vision loss, Photosensitivity Ears, nose, mouth, throat: DENIES: Tinnitus, Hearing loss, Vertigo Respiratory: DENIES: Cough, Wheezing, Sputum production Cardiovascular: DENIES: Chest pain, Palpitations, Syncope Gastrointestinal: COMPLAINS OF: Abdominal pain, Black stools, DENIES: Bloody stools, Constipation, Diarrhea, Nausea, Vomiting, Difficulty Swallowing Musculoskeletal: DENIES: Joint pain, Muscle aches, Stiffness Integumentary: DENIES: Abnormal pigmentation, Nail changes, Pruritus Hematologic/lymphatic: DENIES: Bruising, Lymphadenopathy Immunologic/allergic: DENIES: Eczema, Urticaria Neurologic: DENIES: Abnormal gait, Headache, Localized weakness, Paresthesias Psychiatric: DENIES: Anxiety, Confusion, Hallucinations Past Family Social History Past Medical History Coronary artery disease History of myocardial infarction Angina Hyperlipidemia Gastroesophageal reflux disease Hypertension Osteoarthritis Past Surgical History CABG in 1989 History of coronary artery stents (7) Right eye retina surgery Right inner ear surgery Reported Medications Reported Meds & Active Scripts Active Metoprolol Succinate ER 24 HR (Metoprolol Succinate) 25 Mg Tab 50 Mg PO Q24H Plavix (Clopidogrel Bisulfate) 75 Mg Tab 75 Mg PO DAILY Reported Dicyclomine (Dicyclomine HCl) 20 Mg Tab 20 Mg PO Q6HR PRN Osteo Bi-Flex One A Day (Vqexjczfe-Psihtjjgpmb-Tepbjzc) 1 Tab 2 Tab PO DAILY Aspirin DR (Aspirin) 81 Mg Tabdr 81 Mg PO DAILY Lipitor (Atorvastatin Calcium) 40 Mg Tab 80 Mg PO DAILY Benazepril (Benazepril HCl) 40 Mg Tab 40 Mg PO DAILY Meloxicam 15 Mg Tab 15 Mg PO DAILY Hydrochlorothiazide 12.5 Mg Tab 12.5 Mg PO DAILY Nitrostat SL (Nitroglycerin) 0.4 Mg Subl 0.4 Mg SL DIRECTED PRN 1 tablet under the tongue as needed for chest pain. Repeat every 5 minutes for a total of 3 DOSES or call 911 if NO relief. Allergies: Coded Allergies: No Known Allergies (Verified , 04/13/17) Active Ordered Medications Administered Medications Medications (Trade) Dose Ordered Sig/Misael Route PRN Reason Start Time Stop Time Status Last Admin Dose Admin Sodium Chloride 1,000 ml @ 125 mls/hr Q8H ONCE IV 04/13/17 16:15 04/14/17 00:14 04/13/17 16:40 Pantoprazole Sodium 80 mg/ Sodium Chloride 100 ml @ 10 mls/hr Q10H IV 04/13/17 16:05 04/13/17 16:46 Family History Coronary artery disease and myocardial infarction in patient's father Breast cancer in patient's mother Social History Social alcohol use, no alcohol abuse No smoking history No illicit drug abuse history Physical Exam Vital Signs Vital Signs Date Time Temp Pulse Resp B/P (MAP) Pulse Ox O2 Delivery O2 Flow Rate FiO2 04/13/17 16:24 84 18 113/70 (84) 96 Room Air 04/13/17 16:23 97 Room Air 04/13/17 14:45 98.5 81 16 125/61 (82) 99 Physical Exam GENERAL: NAD, A&Ox3 HEAD: Normocephalic. NECK: Supple, trachea midline. No lymphadenopathy. EYES: No scleral icterus. No injection or drainage. CARDIOVASCULAR: Regular rate and rhythm without murmurs, gallops, or rubs. RESPIRATORY: Breath sounds equal bilaterally. No accessory muscle use. GASTROINTESTINAL: Abdomen soft, non-tender, nondistended. MUSCULOSKELETAL: No cyanosis, or edema. SKIN: Warm and dry. NEURO: No focal neurological deficitis. Laboratory Laboratory Tests Test 04/13/17 16:15 04/13/17 16:20 Urine Color YELLOW Urine Turbidity CLEAR Urine pH 5.5 Urine Specific [place] 1.019 Urine Protein NEG Urine Glucose (UA) NEG Urine Ketones NEG Urine Occult Blood NEG Urine Nitrite NEG Urine Bilirubin NEG Urine Leukocyte Esterase NEG Urine RBC 0-3 Urine WBC 0-2 Urine Squamous Epithelial Cells 0-5 Microscopic Urinalysis Comment CULT NOT INDICATED White Blood Count 11.4 Red Blood Count 3.16 Hemoglobin 9.8 Hematocrit 30.0 Mean Corpuscular Volume 95.0 Mean Corpuscular Hemoglobin 31.1 Mean Corpuscular Hemoglobin Concent 32.8 Red Cell Distribution Width 14.6 Platelet Count 220 Mean Platelet Volume 9.5 Neutrophils (%) (Auto) 73.6 Lymphocytes (%) (Auto) 14.4 Monocytes (%) (Auto) 8.2 Eosinophils (%) (Auto) 3.2 Basophils (%) (Auto) 0.6 Neutrophils # (Auto) 8.4 Lymphocytes # (Auto) 1.6 Monocytes # (Auto) 0.9 Eosinophils # (Auto) 0.4 Basophils # (Auto) 0.1 CBC Comment DIFF FINAL Differential Comment Prothrombin Time 11.4 Prothromb Time International Ratio 1.0 Activated Partial Thromboplast Time 25.4 Blood Urea Nitrogen 40 Creatinine 1.20 Random Glucose 98 Total Protein 7.0 Albumin 3.9 Calcium Level 8.7 Alkaline Phosphatase 66 Aspartate Amino Transf (AST/SGOT) 19 Alanine Aminotransferase (ALT/SGPT) 23 Total Bilirubin 0.5 Sodium Level 136 Potassium Level 3.9 Chloride Level 102 Carbon Dioxide Level 26.3 Anion Gap 8 Estimat Glomerular Filtration Rate 59 B-Type Natriuretic Peptide 184 Result Diagram: 04/13/17 1620 04/13/17 1620 Caprini VTE Risk Assessment Caprini VTE Risk Assessment: Mod/High Risk (score >= 2) Caprini Risk Assessment Model Point Value = 1 Point Value = 2 Point Value = 3 Point Value = 5 Age 41-60 Minor surgery BMI > 25 kg/m2 Swollen legs Varicose veins or History of unexplained or recurrent spontaneous Oral contraceptives or hormone replacement Sepsis (< 1 month) Serious lung disease, including pneumonia (< 1 month) Abnormal pulmonary function Acute myocardial infarction Congestive heart failure (< 1 month) History of inflammatory bowel disease Medical patient at bed rest Age 61-74 Arthroscopic surgery Major open surgery (> 45 min) Laparoscopic surgery (> 45 min) Malignancy Confined to bed (> 72 hours) Immobilizing plaster cast Central venous access Age >= 75 History of VTE Family history of VTE Factor V Leiden Prothrombin [id number] Lupus anticoagulant Anticardiolipin antibodies Elevated serum homocysteine Heparin-induced thrombocytopenia Other congenital or acquired thrombophilia Stroke (< 1 month) Elective arthroplasty Hip, pelvis, or leg fracture Acute spinal cord injury (< 1 month) Prophylaxis Regimen Total Risk Factor Score Risk Level Prophylaxis Regimen 0-1 Low Early ambulation 2 Moderate Order ONE of the following: *Sequential Compression Device (SCD) *Heparin 5000 units SQ BID 3-4 Higher Order ONE of the following medications: *Heparin 5000 units SQ TID *Enoxaparin/Lovenox 40 mg SQ daily (WT < 150 kg, CrCl > 30 mL/min) *Enoxaparin/Lovenox 30 mg SQ daily (WT < 150 kg, CrCl > 10-29 mL/min) *Enoxaparin/Lovenox 30 mg SQ BID (WT < 150 kg, CrCl > 30 mL/min) AND/OR *Sequential Compression Device (SCD) 5 or more Highest Order ONE of the following medications: *Heparin 5000 units SQ TID (Preferred with Epidurals) *Enoxaparin/Lovenox 40 mg SQ daily (WT < 150 kg, CrCl > 30 mL/min) *Enoxaparin/Lovenox 30 mg SQ daily (WT < 150 kg, CrCl > 10-29 mL/min) *Enoxaparin/Lovenox 30 mg SQ BID (WT < 150 kg, CrCl > 30 mL/min) AND *Sequential Compression Device (SCD) Assessment and Plan Problem List: (1) Symptomatic anemia ICD Code: D64.9 - Anemia, unspecified (2) GI bleed ICD Code: K92.2 - Gastrointestinal hemorrhage, unspecified (3) Hypertension ICD Code: I10 - Essential (primary) hypertension (4) Hyperlipidemia ICD Code: E78.5 - Hyperlipidemia, unspecified (5) Acute blood loss anemia ICD Code: D62 - Acute posthemorrhagic anemia (6) Coronary artery disease ICD Code: I25.10 - Atherosclerotic heart disease of [place] coronary artery without angina pectoris Assessment and Plan Assessment and plan 76-year-old male admitted secondary to GI bleed GI bleeding Clear liquid diet overnight IV Protonix GI consult Follow hemoglobin levels Consider transfusion if needed Symptomatic anemia Acute blood loss anemia Follow CBC Transfuse if needed Coronary artery disease History of myocardial infarction Angina Recent coronary artery stenting Follow on telemetry No chest pain currently No change to baseline managements Plan to resume Plavix if hemoglobin shows stability due to recent coronary artery disease stenting Hyperlipidemia Holding PO treatments for now, Plan to resume statin when stabilized Follows in outpatient Gastroesophageal reflux disease On IV Protonix for now Monitor clinically Hypertension As needed IV enalapril Monitor blood pressures DVT prophylaxis SCDs Physician Certification 2 Midnight Certification Type: Admission for Inpatient Services Order for Inpatient Services The services are ordered in accordance with Medicare regulations or non- Medicare payer requirements, as applicable. In the case of services not specified as inpatient-only, they are appropriately provided as inpatient services in accordance with the 2-midnight benchmark. Estimated LOS (days): 2 days is the estimated time the patient will need to remain in the hospital, assuming treatment plan goals are met and no additional complications. Post-Hospital Plan: Home Tolu Chou MD Apr 13, 2017 18:45
[2017-04-13] MEDS ORDERED: NITROGLYCERIN 0.4 MG SL 25 TABS/BTL SL PRN (19:00)
[2017-04-13] MEDS ORDERED: ENALAPRILAT 1.25 MG/ML VIAL IV PUSH PRN (19:00)
--- NOTE | 2017-04-13 19:30 | MB ---
cc: RIVKA BAUER M.D., SUNIL P. MD DATE OF CONSULTATION 04/13/17 REASON FOR CONSULTATION Requested by Dr. Chou for evaluation of the GI bleed. HISTORY OF PRESENT ILLNESS The patient is a pleasant 76-year white male, history of known coronary artery disease for which he takes Plavix and aspirin. He also has arthritis and is taking Meloxicam. For the last week, he has been having black colored stools. He is not taking aspirin or any type of Pepto-Bismol. He came to the emergency room and a rectal exam was done and it showed that he had black heme-positive stool. We have been asked to evaluate this. The patient denies any type of dysphagia or odynophagia, denies any nausea or vomiting. No heartburn issues. No previous melena. Currently denies any hematochezia/rectal bleeding, constipation or diarrhea. He has never had bleed like this in the past. He denies any chest pain or lightheadedness. PAST SURGICAL HISTORY 1. Coronary artery bypass grafting. 2. Cardiac stents last one placed this past October 2016. 3. Ear surgery 4. Tonsillectomy. 5. Upper endoscopy and colonoscopy - see below. These were done in 2010. PAST MEDICAL HISTORY 1. Dyslipidemia 2. Intermittent chest pain but stable now. 3. Coronary artery disease 4. [place] in October and had a cardiac stent placed. He still needs to be on Plavix for about year. 5. Osteoarthritis especially in his knees. 6. Hypertension. 7. Diverticulosis, diverticulitis. 8. Last upper endoscopy done for gastric distension seen on CAT scan was in March 2011. This revealed NG tube trauma. A subsequent gastric emptying was negative. The CAT scan also showed enlarged prostate. He is aware of this. Last colonoscopy done 05/11/2011. It was unremarkable for diverticulosis. Apparently, he has had diverticulitis in the past. Hemorrhoids were also noted at that time. SOCIAL HISTORY He drinks alcohol socially. He stopped smoking when he had the bypass surgery in the 1994. ALLERGIES No known drug allergies. MEDICATIONS Outpatient 1. Metoprolol. 2. Plavix. 3. Aspirin. 4. Meloxicam. 5. Lipitor. 6. Benazepril. 7. Hydrochlorothiazide 8. Nitrostat. 9. Dicyclomine In the hospital 1. Zofran, 2. Morphine 3. Narcan 4. He got a bolus of 80 mg of pantoprazole and started on a pantoprazole drip. REVIEW OF SYSTEMS At this time, he denies any weight loss. No fever or chills. CARDIOPULMONARY: No chest pain, palpitations, wheezing or shortness of breath. GASTROINTESTINAL: Please see above otherwise. Does have knee pain and back pain. Otherwise unremarkable ten-point review of systems. NEUROLOGIC: He does have some dizziness at times. FAMILY HISTORY Noncontributory for this admission. PHYSICAL EXAMINATION VITAL SIGNS: Blood pressure is 113/70, pulse 84, respiratory rate 18. GENERAL: He is an elderly white male, hard of hearing, appears to be in no acute GI distress at this time. HEENT: His pupils are equal, round, react to light. No obvious scleral icterus. Oropharynx had dental caries. No candidal lesions. He has partial dental plates. Hearing is diminished bilaterally but if I spoke loud he could understand me NECK: Supple without lymphadenopathy. LUNGS: Clear to auscultation bilaterally. HEART: Regular rate and rhythm. No gross murmurs are heard. ABDOMEN: Soft, nondistended, nontender. No organomegaly. No ascites or hernias. No Pugh's sign. RECTAL: Exam was not repeated but according to ER doctor's note it was black heme-positive stools. EXTREMITIES: No cyanosis, clubbing or edema. NEUROLOGIC: Cranial nerves are grossly intact. He is oriented times three. Skin: Warm and moist. LABORATORY DATA BUN of 40 was elevated, creatinine 1.20 was normal. Potassium 3.9, sodium 136, SGOT 19, SGPT 23, alk phos is 66, these all normal. Total bilirubin 0.5 is also normal. Albumin and total protein are normal at 3.9 and 7.0 respectively. INR is 1.0, PTT 25.4. PT 11.4. Hemoglobin 9.8, without white blood cell count of 11,400, hematocrit 30, MCV 95, platelet count of 220,000. IMPRESSION 1. Melena - suspect this is an upper GI bleed. Explained the situation to the patient and the patient's family that I suspect this is an ulcer playing a role in the situation. I cannot rule out a benign or malignant ulcers, AVMs, small bowel lesions are also a possibility, cannot rule out right colonic lesions. However, suspect with aspirin and NSAIDs this may be an ulcer. 2. Anemia more likely acute blood loss anemia. 3. Coronary artery disease - the patient understands that depending on what we find on upper endoscopy (see below) he may have to be off his Plavix for a period of time. He is not supposed to stop his Plavix because of the type of stent. We may need to get cardiology involved if this is the situation. RECOMMENDATIONS Upper endoscopy--all the indications, risks, complications, benefits, limitations were all discussed with him. He agrees with the procedure. He understands the risk of bleeding, infection, perforation, arrhythmias, small possibility of . We will do it tomorrow morning. 2. Continue PPI 3. Transfuse as needed. As mentioned above, if he is going to be off Plavix for some time, at that point cardiology will need to be involved. However, we will make the determination after the upper endoscopy is done. Alo Tafoya MD SP/ /6:37 PM /6:54 PM MORIAH
[2017-04-13 19:32] VITALS: BP 125/67; PULSE 100; RESP 20; O2SAT 100
[2017-04-13 20:25] VITALS: BP_SYST 118; BP_DIAS 74; BP_DIAS 76; PULSE 98; RESP 20; TEMP 97; O2SAT 99
[2017-04-13] MEDS: SODIUM CHLORIDE 0.9% FLUSH 10 ML FLUSH IV FLUSH SCH (21:00)
[2017-04-14] VITALS (12 sets, daily range): BP systolic 114–162; BP diastolic 57–92; PULSE 78–120; RESP 16–21; TEMP 96.4–98.6; O2SAT 98–100
[2017-04-14] MEDS: MORPHINE SULFATE 4 MG/ML INJ IV PUSH PRN ×2 (00:43→08:41)
[2017-04-14] MEDS: SODIUM CHLOR 0.9% 1000 ML INJ 1,000 ML IV SCH ×2 (01:23→05:40)
[2017-04-14] MEDS: PANTOPRAZOLE INJ 80 MG in SODIUM CHLORIDE 0.9% INJ 100 ML IV SCH ×2 (01:23→14:08)
[2017-04-14 01:26] LABS: HEMATOCRIT 26.8 % (39.0-51.0); REVIEW FLAG FINAL
[2017-04-14 01:36] LABS: POTASSIUM 3.9 MEQ/L (3.5-5.1)
[2017-04-14 01:39] LABS: BICARBONATE 23.3 MEQ/L (21.0-32.0)
[2017-04-14 07:55] LABS: CHLORIDE 107 MEQ/L (98-107); SODIUM (NA) 139 MEQ/L (136-145)
[2017-04-14 07:58] LABS: ANION GAP 8 MEQ/L (5-15); BICARBONATE 24.2 MEQ/L (21.0-32.0)
[2017-04-14 07:59] LABS: BLOOD UREA NITROGEN 25 MG/DL (7-18)
--- NOTE | 2017-04-14 07:59 | HHI.GIFU ---
GI Follow-up Note Consult Follow-up Subjective: Patient laying in bed comfortably. Had several black BM's last PM-- none since 1:30 am. Had chest pain and EKG changes-because of this anesthesia cancelled this am's EGD. they want cardiac clearance. Objective: PHYSICAL EXAMINATION: Vitals signs stable No fever HEENT: Pupils round and reactive to light; normocephalic; atraumatic; no jaundice. Throat is clear. CHEST: Chest is clear to auscultation and percussion. CARDIAC: Regular rate and rhythm with no murmur gallop or rubs. ABDOMEN: Soft, nondistended, nontender; no hepatosplenomegaly; bowel sounds are present in all four quadrants. EXTREMITIES: No edema. SKIN: no jaundice. 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 Available Data (labs, X- Rays, Procedues) : hgb 8.9 ASSESSMENT/PLAN: 1. Melena--none this am 2. Anemia-pt getting blood. 3. CAD PLAN: 1. will do EGD once cleared from cardiac standpoint. Pt and family are aware of this. Risks were reviewed-he will be a higher risk than normal because of his cardiac status and he and family are awae of this. 2. Cont PPI 3. awaiting post transfusion labs It was a pleasure seeing Chip Graham. Thank you for this consult. Entered by: Alo Hair MD Apr 14, 2017 07:59
[2017-04-14 08:02] LABS: ALT (GPT) 17 U/L (12-78); AST (GOT) 17 U/L (15-37); GLOMERULAR FILTRATION RATE 78 ML/MIN (>89)
[2017-04-14 08:03] LABS: TOTAL BILIRUBIN ADULT 0.8 MG/DL (0.2-1.0)
[2017-04-14 08:05] LABS: ALKALINE PHOSPHATASE 60 U/L (45-117)
[2017-04-14] MEDS: SODIUM CHLORIDE 0.9% FLUSH 10 ML FLUSH IV FLUSH SCH ×2 (09:00→20:21)
[2017-04-14] MEDS: CLOPIDOGREL 75 MG TAB PO SCH (09:22)
[2017-04-14 09:59] LABS: AUTOMATED NEUTROPHIL # 8.5 TH/MM3 (1.8-7.7); BASOPHIL % 0.4 % (0.0-2.0); EOSINOPHIL # 0.2 TH/MM3 (0-0.4); EOSINOPHIL % 1.4 % (0.0-4.0); HEMATOCRIT 27.9 % (39.0-51.0); HEMO FLAGS DIFF FINAL; LYMPH % 10.9 % (9.0-44.0); LYMPHOCYTE # 1.2 TH/MM3 (1.0-4.8); MEAN CELL VOLUME 93.1 FL (80.0-100.0); MEAN CORPUSCULAR HEMOGLOBIN 31.9 PG (27.0-34.0); MEAN CORPUSCULAR HGB CONC 34.3 % (32.0-36.0); MONO % 7.4 % (0.0-8.0); NEUT % 79.9 % (16.0-70.0); PLATELET COUNT 156 TH/MM3 (150-450); RED CELL DISTRIBUTION WIDTH 14.8 % (11.6-17.2); WHITE BLOOD COUNT 10.7 TH/MM3 (4.0-11.0)
--- NOTE | 2017-04-14 10:26 | HHI.PR ---
Subjective Remarks Patient reports onset of exertional chest pain overnight. She has also had additional bowel movements. Hemoglobin checked at approximately 1 AM showed a decline in his hemoglobin level and he was transfused 1 unit. Hemoglobin this morning is at 9.6 was approximately where it was when he came in. He still has exertional chest pain this morning. Patient is declining, and rightfully so, EGD at this time. Cardiac evaluation and clearance will be needed prior to GI procedure. He has no chest pain when he lays still. Has not patient to be followed with Dr. Hillman who is now retired. He requests one of Dr. Hillman's partners to be consulted. Objective Vital Signs Date Time Temp Pulse Resp B/P (MAP) Pulse Ox O2 Delivery O2 Flow Rate FiO2 04/14/17 08:00 97.4 89 20 139/77 100 04/14/17 08:00 97.4 89 20 139/77 (97) 100 04/14/17 04:00 98.6 108 16 138/88 (105) 100 04/14/17 01:48 16 04/14/17 00:40 99 Nasal Cannula 2.00 04/14/17 00:00 97.9 78 16 114/60 (78) 98 04/13/17 20:25 90 20 118/74 (89) 98 04/13/17 20:25 97.0 98 20 118/76 (90) 99 04/13/17 19:32 100 20 125/67 (86) 100 04/13/17 19:30 100 20 97 04/13/17 16:24 84 18 113/70 (84) 96 Room Air 04/13/17 16:23 97 Room Air 04/13/17 14:45 98.5 81 16 125/61 (82) 99 I/O 04/13/17 04/13/17 04/13/17 04/14/17 04/14/17 04/14/17 07:00 15:00 23:00 07:00 15:00 23:00 Intake Total 35 ml 1100 ml Output Total 500 ml 300 ml Balance -465 ml 800 ml Intake IV Total 35 ml 1100 ml Output Urine Total 500 ml 300 ml # Voids 4 # Bowel Movements 2 3 Result Diagram: 04/14/1730 04/14/17 0730 Objective Remarks GENERAL: NAD, A&Ox3 HEAD: Normocephalic. NECK: Supple, trachea midline. No lymphadenopathy. EYES: No scleral icterus. No injection or drainage. CARDIOVASCULAR: Regular rate and rhythm without murmurs, gallops, or rubs. RESPIRATORY: Breath sounds equal bilaterally. No accessory muscle use. GASTROINTESTINAL: Abdomen soft, non-tender, nondistended. MUSCULOSKELETAL: No cyanosis, or edema. SKIN: Warm and dry. NEURO: No focal neurological deficitis. A/P Problem List: (1) Symptomatic anemia ICD Code: D64.9 - Anemia, unspecified (2) GI bleed ICD Code: K92.2 - Gastrointestinal hemorrhage, unspecified (3) Hypertension ICD Code: I10 - Essential (primary) hypertension (4) Hyperlipidemia ICD Code: E78.5 - Hyperlipidemia, unspecified (5) Acute blood loss anemia ICD Code: D62 - Acute posthemorrhagic anemia (6) Coronary artery disease ICD Code: I25.10 - Atherosclerotic heart disease of [place] coronary artery without angina pectoris Assessment and Plan Assessment and plan 76-year-old male admitted secondary to GI bleed. History of coronary artery disease, angina, and old [place]. Patient reports exertional chest pain overnight, he had onset of chest pain when he was trying to get up and walk to the bathroom and whenever he tries to sit up. Cardiology consulted. Unstable angina Evaluate for ACS Follow cardiac enzymes Aspirin daily When necessary oxygen When necessary morphine for pain. When necessary nitroglycerin Follow on telemetry Cardiology consult GI bleeding Liquid diet. Continue IV Protonix GI following Follow hemoglobin levels Consider transfusion if needed Daily aspirin has been held Plavix continued secondary to recent coronary stent Symptomatic anemia Acute blood loss anemia Follow CBC Transfuse if needed Coronary artery disease History of myocardial infarction Angina Recent coronary artery stenting Follow on telemetry No chest pain currently No change to baseline managements Plavix continued Hyperlipidemia Holding PO treatments for now, Plan to resume statin when stabilized Follows in outpatient Gastroesophageal reflux disease On IV Protonix for now Monitor clinically Hypertension As needed IV enalapril Monitor blood pressures DVT prophylaxis ROBERTs Tolu Chou MD Apr 14, 2017 10:26
--- NOTE | 2017-04-14 10:26 | EKG ---
Date Performed: 04/13/2017 Time Performed: 16:16:25 PTAGE: 76 years EKG: Sinus rhythm MINIMAL ST DEPRESSION BORDERLINE ECG PREVIOUS TRACING : 11/10/2016 11.14 Compared to prior tracing no significant change DOCTOR: Josep Resendiz Interpretating Date/Time 04/14/2017 10:19:53
[2017-04-14] MEDS: NITROGLYCERIN 0.4 MG SL 25 TABS/BTL SL PRN ×5 (10:27→21:38)
--- NOTE | 2017-04-14 10:30 | EKG ---
Date Performed: 04/14/2017 Time Performed: 06:25:23 PTAGE: 76 years EKG: Sinus rhythm ST segment depression is noted in the inferolateral leads which is improved from prior study NORMAL ECG PREVIOUS TRACING : 04/14/2017 00.34 DOCTOR: Josep Resendiz Interpretating Date/Time 04/14/2017 10:29:57
--- NOTE | 2017-04-14 10:30 | EKG ---
Date Performed: 04/14/2017 Time Performed: 00:34:29 PTAGE: 76 years EKG: SINUS TACHYCARDIA MODERATE ST DEPRESSION ABNORMAL ECG Compared to PREVIOUS TRACING ST segment depression in the inferolateral is more prominent PREVIOUS T RACIN04/13/2017 16.16 DOCTOR: Josep Resendiz Interpretating Date/Time 04/14/2017 10:28:44
[2017-04-14 12:51] LABS: HEMATOCRIT 29.1 % (39.0-51.0); REVIEW FLAG FINAL
--- NOTE | 2017-04-14 13:32 | EKG ---
Date Performed: 04/14/2017 Time Performed: 12:44:18 PTAGE: 76 years EKG: SINUS TACHYCARDIA NONSPECIFIC ST & T-WAVE ABNORMALITY ABNORMAL RHYTHM ECG PREVIOUS TRACING : 04/14/2017 06.25 No change from previous tracing noted. DOCTOR: Sal Melton Interpretating Date/Time 04/14/2017 13:32:10
[2017-04-14] MEDS: PANTOPRAZOLE 80 MG/100 ML NS IV SCH ×4 (14:15→18:23)
[2017-04-14 16:58] LABS: HEMATOCRIT 32.2 % (39.0-51.0); REVIEW FLAG FINAL
[2017-04-15] VITALS (8 sets, daily range): BP systolic 126–157; BP diastolic 60–83; PULSE 83–121; RESP 19–20; TEMP 97.6–98.6; O2SAT 94–99
[2017-04-15] MEDS: NITROGLYCERIN 0.4 MG SL 25 TABS/BTL SL PRN ×3 (01:04→07:39)
[2017-04-15] MEDS: MORPHINE SULFATE 4 MG/ML INJ IV PUSH PRN (03:13)
[2017-04-15] MEDS: PANTOPRAZOLE 80 MG/100 ML NS IV SCH ×4 (06:04→16:20)
[2017-04-15 06:12] LABS: AUTOMATED NEUTROPHIL # 7.6 TH/MM3 (1.8-7.7); BASOPHIL # 0.1 TH/MM3 (0-0.2); BASOPHIL % 0.9 % (0.0-2.0); EOSINOPHIL # 0.3 TH/MM3 (0-0.4); EOSINOPHIL % 3.1 % (0.0-4.0); HEMATOCRIT 29.4 % (39.0-51.0); HEMO FLAGS DIFF FINAL; LYMPH % 11.4 % (9.0-44.0); LYMPHOCYTE # 1.2 TH/MM3 (1.0-4.8); MEAN CELL VOLUME 94.9 FL (80.0-100.0); MEAN CORPUSCULAR HEMOGLOBIN 32.7 PG (27.0-34.0); MEAN CORPUSCULAR HGB CONC 34.4 % (32.0-36.0); MONO % 10.2 % (0.0-8.0); NEUT % 74.4 % (16.0-70.0); PLATELET COUNT 158 TH/MM3 (150-450); RED BLOOD COUNT 3.09 MIL/MM3 (4.50-5.90); RED CELL DISTRIBUTION WIDTH 14.9 % (11.6-17.2); WHITE BLOOD COUNT 10.2 TH/MM3 (4.0-11.0)
[2017-04-15 06:40] LABS: ALT (GPT) 18 U/L (12-78); ANION GAP 7 MEQ/L (5-15); AST (GOT) 15 U/L (15-37); BLOOD UREA NITROGEN 9 MG/DL (7-18); CHLORIDE 109 MEQ/L (98-107); GLOMERULAR FILTRATION RATE 96 ML/MIN (>89); POTASSIUM 3.8 MEQ/L (3.5-5.1); SODIUM (NA) 142 MEQ/L (136-145)
[2017-04-15 06:42] LABS: ALKALINE PHOSPHATASE 62 U/L (45-117); TOTAL BILIRUBIN ADULT 0.7 MG/DL (0.2-1.0)
[2017-04-15] MEDS: CLOPIDOGREL 75 MG TAB PO SCH (10:24)
[2017-04-15] MEDS: SODIUM CHLORIDE 0.9% FLUSH 10 ML FLUSH IV FLUSH SCH ×2 (10:24→21:11)
--- NOTE | 2017-04-15 10:59 | HHI.GIFU ---
GI Follow-up Note Consult Follow-up Subjective: Patient laying in bed comfortably. [facility]. No more bleeding or chest pain .Pt is back of Plavix Objective: PHYSICAL EXAMINATION: 157/83-19-121 No fever HEENT: Pupils round and reactive to light; normocephalic; atraumatic; no jaundice. Throat is clear. CHEST: Chest is clear to auscultation and percussion. CARDIAC: no murmur gallop or rubs. ABDOMEN: Soft, nondistended, nontender; no hepatosplenomegaly; bowel sounds are present in all four quadrants. EXTREMITIES: No edema. SKIN: no jaundice. 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 Available Data (labs, X- Rays, Procedues) : Hgb 9.9-10.5-10.1. Troponin elevated ASSESSMENT/PLAN: 1. Melena--no bleeding today 2. Anemia-stable 3. CAD/Tachycardia PLAN: 1. will do EGD once cleared from cardiac standpoint. Pt and family are aware of this. Risks were reviewed-he will be a higher risk than normal because of his cardiac status and he and family are aware of this. If not a candidate for EGD will add Carafate. 2. Cont PPI 3. Awaiting cardiac evaluation It was a pleasure seeing Chip Graham. Thank you for this consult. Entered by: Alo Hair MD Apr 15, 2017 10:59
--- NOTE | 2017-04-15 11:16 | HHI.PR ---
Subjective Remarks no chest pain or shortness of breath chest discomfort he associates with voiding difficulties complains of hurting when he urinates - feels urgency with dribbling and spasms and forced urination- and painful- he relates it to the Protonix now with condom cathter no history of prostate problems home meds- Metroprolol 50 mg po bid Atorvastatin 80- mg hs Benazepril 40- mg daily HCTZ 25 mg 1/2 tab daily meloxicam 15 mg po daily- Plavix 75 mg po daily Osteobiflex 1500 mg bid ASA 81 mg daily IMDur 60 mg daily Nitrogrplycen 0.54 mg SL prn dicyclomine 25 mg q 6 prn Objective Vitals Vital Signs Date Time Temp Pulse Resp B/P (MAP) Pulse Ox O2 Delivery O2 Flow Rate FiO2 04/15/17 11:00 21 04/15/17 10:17 Room Air 04/15/17 08:00 98.0 121 19 157/83 (107) 99 04/15/17 04:00 98.2 112 20 144/72 (96) 94 04/15/17 04:00 Room Air 04/15/17 00:00 98.1 96 20 126/66 (86) 96 04/15/17 00:00 Room Air 04/14/17 21:35 120 04/14/17 20:00 Room Air 04/14/17 20:00 98.5 92 20 127/59 (81) 98 04/14/17 19:59 118 04/14/17 19:17 120 19 143/73 (96) 99 04/14/17 19:00 90 04/14/17 18:04 97.8 80 16 128/57 (80) 99 04/14/17 16:00 96.4 105 21 162/92 (115) 99 04/14/17 12:00 96.9 109 20 126/75 (92) 99 I/O 04/14/17 04/14/17 04/14/17 04/15/17 04/15/17 04/15/17 07:00 15:00 23:00 07:00 15:00 23:00 Intake Total 1100 ml 1360 ml 10 ml 340 ml Output Total 300 ml 1550 ml Balance 800 ml 1360 ml 10 ml -1210 ml Intake Oral 240 ml IV Total 1100 ml 1110 ml 10 ml 100 ml Packed Cells 250 ml Output Urine Total 300 ml 1550 ml # Voids 5 # Bowel Movements 3 0 0 Result Diagram: 04/15/17 0429 04/15/179 Imaging Last Impressions Chest X-Ray 04/13/17 1605 Signed Impressions: Service Date/Time: March 17:04 - CONCLUSION: 1. No acute abnormality. Tolu Butts MD Objective Remarks awake and alert, in no distress, tachycardic anicteric lungs clear regular rhythm abdomen soft, nontender extremities no edema no leg swelling or tenderness A/P Problem List: (1) Symptomatic anemia ICD Code: D64.9 - Anemia, unspecified (2) GI bleed ICD Code: K92.2 - Gastrointestinal hemorrhage, unspecified (3) Hypertension ICD Code: I10 - Essential (primary) hypertension (4) Hyperlipidemia ICD Code: E78.5 - Hyperlipidemia, unspecified (5) Acute blood loss anemia ICD Code: D62 - Acute posthemorrhagic anemia (6) Coronary artery disease ICD Code: I25.10 - Atherosclerotic heart disease of [place] coronary artery without angina pectoris Assessment and Plan 76-year-old male admitted secondary to GI bleed. History of coronary artery disease, angina, and old [place]. Patient reports exertional chest pain overnight, he had onset of chest pain when he was trying to get up and walk to the bathroom and whenever he tries to sit up. Cardiology consulted. CAD S/P [place] stents x - october 2016 restart his Metorpolol 50 mg po bid. if BP stable restart hisBenzaepril on 40 mg daily Plaxis on hold due to GIB continue statins consult Cardiology- known to Dr. Hillman- will consult covering physciian- per UB - Dr. Cabrera- will d/w her- GI bleeding Liquid diet. Continue IV Protonix GI following H and H stable Consider transfusion if needed Daily aspirin has been held Plavix continued secondary to recent coronary stent GI ff - awaiting clearance from cardiology Symptomatic anemia Acute blood loss anemia Follow CBC Transfuse if needed Hyperlipidemia Holding PO treatments for now, Plan to resume statin when stabilized Follows in outpatient Gastroesophageal reflux disease On IV Protonix for now Monitor clinically Hypertension As needed IV enalapril Monitor blood pressures Urinary symptoms r/o BPH patient complains of urgency, hesitancy for past 3 days- he associates this with the PPI UA negative Urology consult DVT prophylaxis Ashley Randall MD Apr 15, 2017 11:16
[2017-04-15] MEDS: METOPROLOL TARTRATE 50 MG TAB PO SCH ×2 (13:10→21:11)
[2017-04-15] MEDS: HYDROCHLOROTHIAZIDE 12.5 MG CAP PO SCH (13:10)
--- NOTE | 2017-04-15 17:05 | PD.CONS ---
[facility] Service Urology Consult Requested By Dr. Malave Reason for Consult Urinary urgency Primary Care Physician Polly Vanessa MD Diagnosis: (1) Symptomatic anemia ICD Code: D64.9 - Anemia, unspecified (2) GI bleed ICD Code: K92.2 - Gastrointestinal hemorrhage, unspecified (3) Hypertension ICD Code: I10 - Essential (primary) hypertension (4) Hyperlipidemia ICD Code: E78.5 - Hyperlipidemia, unspecified (5) Acute blood loss anemia ICD Code: D62 - Acute posthemorrhagic anemia (6) Coronary artery disease ICD Code: I25.10 - Atherosclerotic heart disease of [place] coronary artery without angina pectoris History of Present Illness 76 year-old gentleman admitted to rule out GI bleed. During present hospital physician patient reported urgency and dysuria thus prompting a urology consult. Patient reports that in October of this year after having cardiac stents placed he was placed on Plavix and had some dysuria soon thereafter. The symptoms gradually improved over time up until his present hospitalization whereby he has been having some difficulty urinating with urgency, dysuria, hesitancy and straining to void. He also reports some chest pain while straining to pass his urine. He reports that if he just relaxes somewhat it appears that the urine flow is improved. He denies gross hematuria. He does have his PSA level checked on an annual basis and results have been negative to date. Urinalysis upon present hospitalization was negative. Review of Systems Constitutional: DENIES: Fever Cardiovascular: COMPLAINS OF: Chest pain Gastrointestinal: COMPLAINS OF: Black stools, DENIES: Abdominal pain Genitourinary: COMPLAINS OF: Urgency, Dysuria, DENIES: Hematuria Except as stated in HPI: all other systems reviewed are Neg Past Family Social History Past Medical History Coronary artery disease Hypertension Hyperlipidemia GERD Osteoarthritis Past Surgical History Status post CABG 1989 Status post cardiac stents Status post right ear surgery Status post right eye surgery Reported Medications Refer to EMR Allergies: Coded Allergies: No Known Allergies (Verified , 04/13/17) Active Ordered Medications Refer to EMR Family History Father with coronary artery disease Mother with history breast cancer Social History Denies history tobacco, alcohol abuse or intravenous drug abuse Physical Exam Vital Signs Date Time Temp Pulse Resp B/P (MAP) Pulse Ox O2 Delivery O2 Flow Rate FiO2 04/15/17 16:00 97.8 83 19 128/60 (82) 98 04/15/17 12:00 98.6 113 19 141/69 (93) 96 04/15/17 11:42 103 04/15/17 11:00 21 04/15/17 10:17 Room Air 04/15/17 08:00 98.0 121 19 157/83 (107) 99 04/15/17 04:00 98.2 112 20 144/72 (96) 94 04/15/17 04:00 Room Air 04/15/17 00:00 98.1 96 20 126/66 (86) 96 04/15/17 00:00 Room Air 04/14/17 21:35 120 04/14/17 20:00 Room Air 04/14/17 20:00 98.5 92 20 127/59 (81) 98 04/14/17 19:59 118 04/14/17 19:17 120 19 143/73 (96) 99 04/14/17 19:00 90 04/14/17 18:04 97.8 80 16 128/57 (80) 99 Physical Exam GENERAL: This is a well-nourished, well-developed patient, in no apparent distress. SKIN: No rashes, ecchymoses or lesions. Cool and dry. HEAD: Atraumatic. Normocephalic. No temporal or scalp tenderness. EYES: Pupils equal round and reactive. Extraocular motions intact. No scleral icterus. No injection or drainage. ENT: Nose without bleeding, purulent drainage or septal hematoma. Throat without erythema, tonsillar hypertrophy or exudate. Uvula midline. Airway patent. NECK: Trachea midline. No JVD or lymphadenopathy. Supple, nontender, no meningeal signs. GASTROINTESTINAL: Abdomen soft, non-tender, nondistended. No hepato-splenomegaly , or palpable masses. No guarding. GENITOURINARY: Normal phallus, testes bilaterally descended, digital rectal exam revealed a markedly enlarged prostate greater than 50 g, smooth and without palpable nodules. MUSCULOSKELETAL: Extremities without clubbing, cyanosis, or edema. No joint tenderness, effusion, or edema noted. No calf tenderness. Negative Homans sign bilaterally. NEUROLOGICAL: Awake and alert. Cranial nerves II through XII intact. Motor and sensory grossly within normal limits. Five out of 5 muscle strength in all muscle groups. Normal speech. Lab results reviewed: Yes Laboratory Tests Test 04/15/17 04:29 White Blood Count 10.2 Red Blood Count 3.09 Hemoglobin 10.1 Hematocrit 29.4 Mean Corpuscular Volume 94.9 Mean Corpuscular Hemoglobin 32.7 Mean Corpuscular Hemoglobin Concent 34.4 Red Cell Distribution Width 14.9 Platelet Count 158 Mean Platelet Volume 10.3 Neutrophils (%) (Auto) 74.4 Lymphocytes (%) (Auto) 11.4 Monocytes (%) (Auto) 10.2 Eosinophils (%) (Auto) 3.1 Basophils (%) (Auto) 0.9 Neutrophils # (Auto) 7.6 Lymphocytes # (Auto) 1.2 Monocytes # (Auto) 1.0 Eosinophils # (Auto) 0.3 Basophils # (Auto) 0.1 CBC Comment DIFF FINAL Differential Comment Blood Urea Nitrogen 9 Creatinine 0.79 Random Glucose 107 Total Protein 6.1 Albumin 3.4 Calcium Level 8.4 Alkaline Phosphatase 62 Aspartate Amino Transf (AST/SGOT) 15 Alanine Aminotransferase (ALT/SGPT) 18 Total Bilirubin 0.7 Sodium Level 142 Potassium Level 3.8 Chloride Level 109 Carbon Dioxide Level 26.0 Anion Gap 7 Estimat Glomerular Filtration Rate 96 Result Diagram: 04/15/17 0429 04/15/17 0429 Imaging Last Impressions Chest X-Ray 04/13/17 1605 Signed Impressions: Service Date/Time: March 17:04 - CONCLUSION: 1. No acute abnormality. Tolu Butts MD Assessment and Plan Assessment and Plan Urologic impression: Lower urinary tract symptoms likely related to obstructing BPH. Plan: #1 tamsulosin 0.4 mg by mouth daily #2 finasteride 5 mg by mouth daily #3 office follow up in approximately 2 months for reevaluation [phone] Efe Winters MD Apr 15, 2017 17:05
[2017-04-15] MEDS: TAMSULOSIN HCL 0.4 MG CAP PO SCH (17:43)
--- NOTE | 2017-04-15 19:19 | MB ---
cc: ODALYS GUERRA MARIA I. M.D. MARSTARLA TEJEDA DATE OF CONSULTATION 04/15/17 REASON FOR CONSULTATION Cardiac evaluation prior to endoscopy HISTORY OF PRESENT ILLNESS The patient is a 76-year-old white male with history of coronary artery disease and status post stent in October of 2016 who presented to the [facility] with black stools and dyspnea. During the hospitalization the patient had new onset difficulty urinating associated with angina and requiring multiple sublingual nitroglycerin tablets. His last episode of chest discomfort was last night. He has ruled in for a non-ST elevation myocardial infarction with troponins of 0.1 and 0.25. His electrocardiogram shows normal sinus rhythm with nonspecific ST-T changes. His difficulty urinating has improved on Finasteride and Tamsulosin, but in spite of that he has continued to experience non-exertional angina. His hemoglobin has been ranging between nine and 10 and he is status post transfusion of one pack of red cells. Currently, the patient is asymptomatic. PAST MEDICAL HISTORY 1. Hypertension, 2. Hyperlipidemia, 3. Coronary artery disease status post coronary artery bypass graft in 1989. 4. Status post cardiac catheterization in October of 2016 where all his vein grafts were found to be totally occluded and only the [place] to the LAD remained patent. His circumflex artery had a critical stenosis in an obtuse marginal branch that was stented with suboptimal results. 5. Recently diagnosed BPH. SOCIAL HISTORY The patient denies smoking but does drink socially. ALLERGIES He has no allergies. MEDICATIONS current medications 1. Finasteride 2. Tamsulosin. 3. Metoprolol 50 mg twice a day. 4. Hydrochlorothiazide 12.5 mg daily 5. Intravenous Pantoprazole 6. Sublingual Nitroglycerin as needed. 7. Clopidigrel 75 mg daily. 8. Morphine sulfate as needed PHYSICAL EXAMINATION VITAL SIGNS: Blood pressure 128/60 mmHg, heart rate 83 beats per minute. He is a febrile. HEAD AND NECK: Without JVD or carotid bruits. LUNGS: Clear to auscultation. HEARTY: Normal S1 and S2 without murmurs or gallops. ABDOMEN Soft without visceromegaly or bruits. Positive bowel sounds. EXTREMITIES: Warm without edema. CARDIOLOGY STUDIES Electrocardiogram with normal sinus rhythm and diffuse nonspecific ST-T changes. LABORATORY DATA Troponins 0.03, 0.1 and 0.25. CBC remarkable for a hemoglobin of 10 with an MCV of 95. BMP remarkable for a glucose of 107. CARDIOLOGY STUDIES Chest x-ray within normal limits. ASSESSMENT A 76-year-old white male with coronary artery disease now with unstable angina and non-ST elevation myocardial infarction. He also has anemia secondary to gastrointestinal bleeding. RECOMMENDATIONS The patient will need a cardiac catheterization prior to endoscopy. We will discontinue Plavix pending eventual upper endoscopy. Continue sublingual nitroglycerin and morphine for angina control. He is otherwise optimized on medical therapy. Further recommendations pending results of cardiac catheterization. MD MONALISA Jimenez/ /5:34 PM /7:01 PM MTDD
[2017-04-16] VITALS (7 sets, daily range): BP systolic 114–160; BP diastolic 57–74; PULSE 74–116; RESP 16–22; TEMP 97.2–98.1; O2SAT 96–99
[2017-04-16] MEDS: PANTOPRAZOLE 80 MG/100 ML NS IV SCH ×4 (02:23→12:39)
[2017-04-16] MEDS: TAMSULOSIN HCL 0.4 MG CAP PO SCH (08:31)
[2017-04-16] MEDS: FINASTERIDE 5 MG TAB PO SCH (08:31)
[2017-04-16] MEDS: METOPROLOL TARTRATE 50 MG TAB PO SCH ×2 (08:31→20:29)
[2017-04-16] MEDS: SODIUM CHLORIDE 0.9% FLUSH 10 ML FLUSH IV FLUSH SCH ×2 (08:31→20:30)
[2017-04-16] MEDS: HYDROCHLOROTHIAZIDE 12.5 MG CAP PO SCH (08:31)
--- NOTE | 2017-04-16 09:30 | HHI.PR ---
Subjective Remarks tolerating po well- on full liquids, no nausea or vomiting urinary frequency- started on meds Objective Vitals Vital Signs Date Time Temp Pulse Resp B/P (MAP) Pulse Ox O2 Delivery O2 Flow Rate FiO2 04/16/17 08:01 98.0 99 16 136/68 (90) 98 04/16/17 04:00 97.8 74 20 160/74 (102) 99 04/16/17 04:00 Room Air 04/16/17 00:00 Room Air 04/16/17 00:00 97.2 89 20 141/63 (89) 98 04/15/17 20:00 Room Air 04/15/17 20:00 97.6 97 20 134/65 (88) 98 04/15/17 19:59 97 04/15/17 16:00 97.8 83 19 128/60 (82) 98 04/15/17 12:00 98.6 113 19 141/69 (93) 96 04/15/17 11:42 103 04/15/17 11:00 21 04/15/17 10:17 Room Air I/O 04/15/17 04/15/17 04/15/17 04/16/17 04/16/17 04/16/17 07:00 15:00 23:00 07:00 15:00 23:00 Intake Total 340 ml 960 ml 428 ml Output Total 1550 ml 900 ml 900 ml Balance -1210 ml 60 ml -472 ml Intake Oral 240 ml 960 ml IV Total 100 ml 428 ml Output Urine Total 1550 ml 900 ml 900 ml # Voids 1 # Bowel Movements 0 Result Diagram: 04/15/17 0429 04/15/17 0429 Imaging Last Impressions Chest X-Ray 04/13/17 1605 Signed Impressions: Service Date/Time: March 17:04 - CONCLUSION: 1. No acute abnormality. Tolu Butts MD Objective Remarks awake and alert, in no distress anicteric lungs clear regular rhythm- sinus rate better 90s abdomen soft, nontender extremities no edema no leg swelling or tenderness A/P Problem List: (1) Symptomatic anemia ICD Code: D64.9 - Anemia, unspecified (2) GI bleed ICD Code: K92.2 - Gastrointestinal hemorrhage, unspecified (3) Hypertension ICD Code: I10 - Essential (primary) hypertension (4) Hyperlipidemia ICD Code: E78.5 - Hyperlipidemia, unspecified (5) Acute blood loss anemia ICD Code: D62 - Acute posthemorrhagic anemia (6) Coronary artery disease ICD Code: I25.10 - Atherosclerotic heart disease of [place] coronary artery without angina pectoris Assessment and Plan 76-year-old male admitted secondary to GI bleed. History of coronary artery disease, angina, and old [place]. Patient reports exertional chest pain overnight, he had onset of chest pain when he was trying to get up and walk to the bathroom and whenever he tries to sit up. Cardiology consulted. CAD S/P PR stents x - october 2016 restart his Metorpolol 50 mg po bid. eventually restart his Benazepril if continues to be stable (aas OP on Benazepril 40 mg qd) Plaxis on hold due to GIB continue statins seen by Dr. Zapata- plan for cardiac cath - Monday GI bleeding regular diet- advance seen EGD not scheduled yet pending cardiac cath Continue IV Protonix GI following H and H stable Consider transfusion if needed Daily aspirin/Plavix has been held GI ff - awaiting clearance from cardiology Symptomatic anemia Acute blood loss anemia Follow CBC. CBC today Transfuse if needed Hyperlipidemia statins Gastroesophageal reflux disease On IV Protonix for now Monitor clinically Hypertension As needed IV enalapril Monitor blood pressures Urinary symptoms likely underlying BPH -seen by Dr. Winters- OP ff up in 8 weeks- [phone] started on Flomax 0.4 mg po daily. Finasteride 5 mg po daily DVT prophylaxis SCDs Ashley Malave MD Apr 16, 2017 09:30
--- NOTE | 2017-04-16 11:23 | HHI.GIFU ---
GI Follow-up Note Consult Follow-up Subjective: Patient laying in bed comfortably. Had BM today--no melena. EGD on hold till cardiac cath done. Off Plavix now Objective: PHYSICAL EXAMINATION: Vitals signs stable No fever CHEST: Chest is clear to auscultation and percussion. CARDIAC: Regular rate and rhythm with no murmur gallop or rubs. ABDOMEN: Soft, nondistended, nontender; no hepatosplenomegaly; bowel sounds are present in all four quadrants. EXTREMITIES: No edema.. PRIVATE DUTY NURSE: No focal deficits; alert and oriented times three. Available Data (labs, X- Rays, Procedues) : no new labs ASSESSMENT/PLAN: 1. Melena--resolved 2. Anemia-stable 3. CAD/Tachycardia-the later is better PLAN: 1. will do EGD once cleared from cardiac standpoint. Pt and family are aware of this. Risks were reviewed-he will be a higher risk than normal because of his cardiac status and he and family are aware of this. To gave cath early next week 2. Cont PPI 3. Agree with advancing diet 4. Add Carafate It was a pleasure seeing Chip Graham. Thank you for this consult. Entered by: Alo Hair MD Apr 16, 2017 11:23
[2017-04-16] MEDS: SUCRALFATE 1 GM TAB PO SCH ×3 (11:33→20:29)
[2017-04-16 13:40] LABS: HEMATOCRIT 32.3 % (39.0-51.0)
[2017-04-16] MEDS: ACETAMINOPHEN 325 MG TAB PO PRN (20:29)
[2017-04-17] VITALS (7 sets, daily range): BP systolic 122–146; BP diastolic 60–80; PULSE 83–117; RESP 18–21; TEMP 97.8–99.3; O2SAT 94–98
[2017-04-17] MEDS: PANTOPRAZOLE 80 MG/100 ML NS IV SCH ×4 (00:12→11:00)
[2017-04-17] MEDS: SODIUM CHLORIDE 0.9% FLUSH 10 ML FLUSH IV FLUSH SCH ×2 (09:00→21:00)
[2017-04-17] MEDS: TAMSULOSIN HCL 0.4 MG CAP PO SCH (09:12)
[2017-04-17] MEDS: METOPROLOL TARTRATE 50 MG TAB PO SCH ×2 (09:13→21:09)
[2017-04-17] MEDS: SUCRALFATE 1 GM TAB PO SCH ×4 (09:13→21:09)
[2017-04-17] MEDS: FINASTERIDE 5 MG TAB PO SCH (09:14)
[2017-04-17] MEDS: HYDROCHLOROTHIAZIDE 12.5 MG CAP PO SCH (09:14)
--- NOTE | 2017-04-17 10:39 | HHI.PR ---
Subjective Remarks This is a pleasant 76 y/o male admitted April 13 2017, came with one week history of black tarry stools, Dyspnea on Exertion, he is on Plavix and aspirin secondary to coronary stents placed within the past year. He also takes meloxicam on a daily basis. has Hyperlipidemia, OA, Hypertension, GERD, CAD status post CABG 1989, PCI wit stent placement x 7. seen in his bedroom in the presence of his and his Daughter and Son Mr. Kameron Graham, they want their own Primary design specialist and will clear the situation was discussed in the room with nurse Miss Roper also at this time his Primary GI specialist doctor Alo Tafoya in to see the patient no other concern. Objective Vital Signs Date Time Temp Pulse Resp B/P (MAP) Pulse Ox O2 Delivery O2 Flow Rate FiO2 04/17/17 08:00 98.4 103 18 136/78 (97) 98 04/17/17 04:00 97.9 113 19 146/65 (92) 94 04/17/17 00:00 97.8 83 21 128/60 (82) 97 04/16/17 20:10 Room Air 04/16/17 20:00 97.7 99 22 144/68 (93) 98 04/16/17 20:00 116 04/16/17 16:00 98.1 99 16 115/60 (78) 96 04/16/17 12:01 98.1 84 16 114/57 (76) 97 I/O 04/16/17 04/16/17 04/16/17 04/17/17 04/17/17 04/17/17 07:00 15:00 23:00 07:00 15:00 23:00 Intake Total 428 ml 420 ml 620 ml Output Total 900 ml 1100 ml Balance -472 ml 420 ml -480 ml Intake Oral 420 ml 520 ml IV Total 428 ml 100 ml Output Urine Total 900 ml 1100 ml # Voids 5 # Bowel Movements 1 0 Result Diagram: 04/16/17 1320 04/15/17 0429 Imaging Last Impressions Chest X-Ray 04/13/17 1605 Signed Impressions: Service Date/Time: March 17:04 - CONCLUSION: 1. No acute abnormality. Tolu Butts MD Procedures None Other Results Laboratory Tests Test 04/13/17 16:15 04/13/17 16:20 04/14/17 12:40 04/15/17 04:29 Urine Color YELLOW Urine Turbidity CLEAR Urine pH 5.5 Urine Specific [place] 1.019 Urine Protein NEG mg/dL Urine Glucose (UA) NEG mg/dL Urine Ketones NEG mg/dL Urine Occult Blood NEG Urine Nitrite NEG Urine Bilirubin NEG Urine Leukocyte Esterase NEG Urine RBC 0-3 /hpf Urine WBC 0-2 /hpf Urine Squamous Epithelial Cells 0-5 /hpf Microscopic Urinalysis Comment CULT NOT INDICATED Prothrombin Time 11.4 SEC Prothromb Time International Ratio 1.0 RATIO Activated Partial Thromboplast Time 25.4 SEC B-Type Natriuretic Peptide 184 PG/ML Total Creatine Kinase 51 U/L Troponin I 0.25 NG/ML White Blood Count 10.2 TH/MM3 Red Blood Count 3.09 MIL/MM3 Mean Corpuscular Volume 94.9 FL Mean Corpuscular Hemoglobin 32.7 PG Mean Corpuscular Hemoglobin Concent 34.4 % Red Cell Distribution Width 14.9 % Platelet Count 158 TH/MM3 Mean Platelet Volume 10.3 FL Neutrophils (%) (Auto) 74.4 % Lymphocytes (%) (Auto) 11.4 % Monocytes (%) (Auto) 10.2 % Eosinophils (%) (Auto) 3.1 % Basophils (%) (Auto) 0.9 % Neutrophils # (Auto) 7.6 TH/MM3 Lymphocytes # (Auto) 1.2 TH/MM3 Monocytes # (Auto) 1.0 TH/MM3 Eosinophils # (Auto) 0.3 TH/MM3 Basophils # (Auto) 0.1 TH/MM3 CBC Comment DIFF FINAL Differential Comment Blood Urea Nitrogen 9 MG/DL Creatinine 0.79 MG/DL Random Glucose 107 MG/DL Total Protein 6.1 GM/DL Albumin 3.4 GM/DL Calcium Level 8.4 MG/DL Alkaline Phosphatase 62 U/L Aspartate Amino Transf (AST/SGOT) 15 U/L Alanine Aminotransferase (ALT/SGPT) 18 U/L Total Bilirubin 0.7 MG/DL Sodium Level 142 MEQ/L Potassium Level 3.8 MEQ/L Chloride Level 109 MEQ/L Carbon Dioxide Level 26.0 MEQ/L Anion Gap 7 MEQ/L Estimat Glomerular Filtration Rate 96 ML/MIN Test 04/16/17 13:20 Hemoglobin 10.8 GM/DL Hematocrit 32.3 % Objective Remarks GENERAL: Alert and oriented x 3, hard of hearing. SKIN: Warm and dry. HEAD: Atraumatic. Normocephalic. EYES: Pupils equal and round. No scleral icterus. No injection or drainage. ENT: No nasal bleeding or discharge. Mucous membranes pink and moist. NECK: Trachea midline. No JVD. CARDIOVASCULAR: Regular rate and rhythm. RESPIRATORY: No accessory muscle use. Clear to auscultation. Breath sounds equal bilaterally. GASTROINTESTINAL: Abdomen soft, non-tender, nondistended. Hepatic and splenic margins not palpable. MUSCULOSKELETAL: Extremities without clubbing, cyanosis, or edema. No obvious deformities. NEUROLOGICAL: Awake and alert. No obvious cranial nerve deficits. PSYCHIATRIC: Appropriate mood and affect. Medications and IVs Current Medications Medications (Trade) Dose Ordered Sig/Misael Route Start Time Stop Time Status Last Admin (NS Flush) 2 ml UNSCH PRN IV FLUSH 04/13/17 17:45 (NS Flush) 2 ml BID IV FLUSH 04/13/17 21:00 04/16/17 20:30 (Zofran Inj) 4 mg Q6H PRN IVP 04/13/17 17:45 04/14/17 05:46 (Morphine Inj) 2 mg Q3H PRN IV PUSH 04/13/17 17:45 04/14/17 04:26 (Morphine Inj) 4 mg Q3H PRN IV PUSH 04/13/17 17:45 04/15/17 03:13 (Narcan Inj) 0.4 mg UNSCH PRN IV PUSH 04/13/17 17:45 (Vasotec Inj) 1.25 mg Q6H PRN IV PUSH 04/13/17 19:00 04/14/17 16:51 (Nitrostat Sl) 0.4 mg Q5M PRN SL 04/14/17 09:00 04/15/17 07:39 Pantoprazole Sodium 80 mg/ Sodium Chloride 100 ml @ 10 mls/hr Q10H IV 04/14/17 14:15 04/17/17 00:12 (Lopressor) 50 mg Q12HR PO 04/15/17 11:30 04/17/17 09:13 (Microzide) 12.5 mg DAILY PO 04/15/17 11:30 04/17/17 09:14 (Proscar) 5 mg DAILY PO 04/16/17 09:00 04/17/17 09:14 (Flomax) 0.4 mg DAILY PO 04/15/17 17:15 04/17/17 09:12 (Carafate) 1 gm ACHS PO 04/16/17 12:00 04/17/17 09:13 (Tylenol) 650 mg Q4H PRN PO 04/16/17 20:00 04/16/17 20:29 A/P Assessment and Plan 76-year-old male admitted secondary to GI bleed. History of coronary artery disease, angina, and old NM. Patient reports exertional chest pain overnight, he had onset of chest pain when he was trying to get up and walk to the bathroom and whenever he tries to sit up. Cardiology consulted. CAD S/P [place] stents x - october 2016 re start his Metoprolol 50 mg po bid. eventually restart his Benazepril if continues to be stable (aas OP on Benazepril 40 mg qd) Plaxis on hold due to GIB continue statins seen by Dr. Zapata- plan for cardiac cath - Monday awaiting for their own design specialist to do the procedure. GI bleeding regular diet- advance seen EGD not scheduled yet pending cardiac cath Continue IV Protonix GI following H and H stable Consider transfusion if needed Daily aspirin/Plavix has been held GI ff - awaiting clearance from cardiology Symptomatic anemia Acute blood loss anemia Follow CBC. CBC today Transfuse if needed Hyperlipidemia statins Gastroesophageal reflux disease On IV Protonix for now Monitor clinically Hypertension As needed IV enalapril Monitor blood pressures Urinary symptoms likely underlying BPH -seen by Dr. Winters- OP ff up in 8 weeks- [phone] started on Flomax 0.4 mg po daily. Finasteride 5 mg po daily DVT prophylaxis SCDs Discharge Planning Once cleared by specialists. Ryan Ferguson MD Apr 17, 2017 10:39
--- NOTE | 2017-04-17 12:28 | HHI.GIFU ---
GI Follow-up Note Consult Follow-up Subjective: Patient laying in bed comfortably--no bleeding. Tolerating diet. On Carafate and PPI. Objective: PHYSICAL EXAMINATION: Vitals signs stable--there is some mild tachycardia No fever CHEST: Chest is clear to auscultation and percussion. CARDIAC: no murmur gallop or rubs. ABDOMEN: Soft, nondistended, nontender; no hepatosplenomegaly; bowel sounds are present in all four quadrants. EXTREMITIES: No edema. SKIN: no jaundice. MANAGER FLEET: No focal deficits; alert and oriented times three. Available Data (labs, X- Rays, Procedues) : ASSESSMENT/PLAN: 1. melena-no further bleeding noted 2. anemiahemoglobin stable 3. coronary disease/tachycardiacardiology to see the patient today in regards to catheterization. PLAN: 1. continue Carafate. Patient requests changing the PPI to by mouth. He feels the PPI is irritating his arm/vein. 2. risk of being off Plavix discuss the patient 3. awaiting cardiac clearance in regards to upper endoscopy It was a pleasure seeing Chip Graham. Thank you for this consult. Entered by: Alo Hair MD Apr 17, 2017 12:28
[2017-04-17] MEDS: ACETAMINOPHEN 325 MG TAB PO PRN (13:29)
[2017-04-17] MEDS: NITROGLYCERIN 0.4 MG SL 25 TABS/BTL SL PRN (14:03)
[2017-04-17] MEDS ORDERED: PILL SPLITTER OTHER PRN (20:00)
--- NOTE | 2017-04-17 20:22 | PD.CARD.PN ---
Subjective Subjective Remarks PATIENT INTERVIEWED AND EXAMINED WITH FAMILY AT BEDSIDE EVENTS NOTED AND CHART REVIEWED. GI BLEED, SUSPECTED UPPER, TO BE SCHEDULED FOR EGD RECURRENT CHEST PAIN CONSISTENT WITH HIS ANGINA AND TROPONIN POSITIVE FOR ACS LIKELY 2/2 DEMAND ISCHEMIA AND SEVERE ANEMIA. 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 HIS LAST CARDIAC CATH AND PCI 10/2016 WAS COMPLICATED BY VESSEL CLOSURE THAT REQUIRED IABP SUPPORT. MEDICAL MGT WAS UNDERTAKEN HE IS LIKELY NOT A REDO CABG CANDIDATE. Objective Medications Current Medications Medications (Trade) Dose Ordered Sig/Misael Route Start Time Stop Time Status Last Admin (NS Flush) 2 ml UNSCH PRN IV FLUSH 04/13/17 17:45 (NS Flush) 2 ml BID IV FLUSH 04/13/17 21:00 04/16/17 20:30 (Zofran Inj) 4 mg Q6H PRN IVP 04/13/17 17:45 04/14/17 05:46 (Morphine Inj) 2 mg Q3H PRN IV PUSH 04/13/17 17:45 04/14/17 04:26 (Morphine Inj) 4 mg Q3H PRN IV PUSH 04/13/17 17:45 04/15/17 03:13 (Narcan Inj) 0.4 mg UNSCH PRN IV PUSH 04/13/17 17:45 (Vasotec Inj) 1.25 mg Q6H PRN IV PUSH 04/13/17 19:00 04/14/17 16:51 (Nitrostat Sl) 0.4 mg Q5M PRN SL 04/14/17 09:00 04/17/17 14:03 (Lopressor) 50 mg Q12HR PO 04/15/17 11:30 04/17/17 09:13 (Microzide) 12.5 mg DAILY PO 04/15/17 11:30 04/17/17 09:14 (Proscar) 5 mg DAILY PO 04/16/17 09:00 04/17/17 09:14 (Flomax) 0.4 mg DAILY PO 04/15/17 17:15 04/17/17 09:12 (Carafate) 1 gm ACHS PO 04/16/17 12:00 04/17/17 17:42 (Tylenol) 650 mg Q4H PRN PO 04/16/17 20:00 04/17/17 13:29 (Protonix) 40 mg Q12HR PO 04/17/17 21:00 Vital Signs / I&O Vital Signs Date Time Temp Pulse Resp B/P (MAP) Pulse Ox O2 Delivery O2 Flow Rate FiO2 04/17/17 16:00 99.3 111 18 122/62 (82) 97 04/17/17 12:00 97.9 96 18 138/61 (86) 95 04/17/17 08:00 98.4 103 18 136/78 (97) 98 04/17/17 04:00 97.9 113 19 146/65 (92) 94 04/17/17 00:00 97.8 83 21 128/60 (82) 97 04/16/17 20:10 Room Air 04/16/17 20:00 97.7 99 22 144/68 (93) 98 04/16/17 20:00 116 I/O 04/16/17 04/16/17 04/16/17 04/17/17 04/17/17 04/17/17 07:00 15:00 23:00 07:00 15:00 23:00 Intake Total 428 ml 420 ml 620 ml 100 ml 0 ml Output Total 900 ml 1100 ml 100 ml Balance -472 ml 420 ml -480 ml 100 ml -100 ml Intake Oral 420 ml 520 ml 0 ml IV Total 428 ml 100 ml 100 ml Output Urine Total 900 ml 1100 ml 100 ml # Voids 5 # Bowel Movements 1 0 0 Physical Exam ANICTERIC, EDILBERTO FLAT JVD, NO BRUIT LUNGS CLEAR RRR, 2/6 SYSTOLIC MURMUR LLSB ABD SOFT EXTR WITHOUT EDEMA Laboratory Current Medications Medications (Trade) Dose Ordered Sig/Misael Route Start Time Stop Time Status Last Admin (NS Flush) 2 ml UNSCH PRN IV FLUSH 04/13/17 17:45 (NS Flush) 2 ml BID IV FLUSH 04/13/17 21:00 04/16/17 20:30 (Zofran Inj) 4 mg Q6H PRN IVP 04/13/17 17:45 04/14/17 05:46 (Morphine Inj) 2 mg Q3H PRN IV PUSH 04/13/17 17:45 04/14/17 04:26 (Morphine Inj) 4 mg Q3H PRN IV PUSH 04/13/17 17:45 04/15/17 03:13 (Narcan Inj) 0.4 mg UNSCH PRN IV PUSH 04/13/17 17:45 (Vasotec Inj) 1.25 mg Q6H PRN IV PUSH 04/13/17 19:00 04/14/17 16:51 (Nitrostat Sl) 0.4 mg Q5M PRN SL 04/14/17 09:00 04/17/17 14:03 (Lopressor) 50 mg Q12HR PO 04/15/17 11:30 04/17/17 09:13 (Microzide) 12.5 mg DAILY PO 04/15/17 11:30 04/17/17 09:14 (Proscar) 5 mg DAILY PO 04/16/17 09:00 04/17/17 09:14 (Flomax) 0.4 mg DAILY PO 04/15/17 17:15 04/17/17 09:12 (Carafate) 1 gm ACHS PO 04/16/17 12:00 04/17/17 17:42 (Tylenol) 650 mg Q4H PRN PO 04/16/17 20:00 04/17/17 13:29 (Protonix) 40 mg Q12HR PO 04/17/17 21:00 Assessment and Plan Assessment and Plan GI BLEED, QUERY UPPER UNSTABLE ANGINA 2/2 DEMAND ISCHEMIA ASHD MULTIVESSEL CAPITAN GRANDE AND GRAFT OCCLUSIONS, PATENT GILLESPIE-LAD HTN HYPERLIPIDEMIA GERD Rx: KEEP HCT > 30% FOR CVS ESCALATE ANTIANGINAL Rx. START NITROPASTE 1" Q6HRS INCREASE METOPROLOL 75 MG BID ADD RANEXA 1,000 MG BID OK TO HAVE ENDOSCOPY, HIGH RISK THOUGH NOT PROHIBITIVE IDEALLY HE SHOULD BE ON DAPT INDEFINITELY 2/2 HIGH RISK FOR CVS EVENTS. DEFER CARDIAC CATH 2/2 INCREASED RISK AND CANNOT PCI OR ANTICOAGULATE ABOVE PLAN DISCUSSED WITH FAMILY AT LENGTH. Zain Chiang MD Apr 17, 2017 20:22
[2017-04-17] MEDS: PANTOPRAZOLE SOD 40 MG DELAYED RELEASE TAB PO SCH (21:09)
[2017-04-17] MEDS: NITROGLYCERIN 2% OINT 1 GM PACKET TOPICAL SCH (21:09)
[2017-04-17] MEDS: RANOLAZINE 500 MG EXTENDED RELEASE TAB PO SCH (21:58)
[2017-04-18] VITALS: BP 149/75; PULSE 108; RESP 18; TEMP 99.2; O2SAT 95
[2017-04-18] MEDS: NITROGLYCERIN 2% OINT 1 GM PACKET TOPICAL SCH ×4 (01:06→17:26)
[2017-04-18 04:00] VITALS: BP 119/72; PULSE 98; RESP 16; TEMP 98.7; O2SAT 95
[2017-04-18] MEDS: SODIUM CHLORIDE 0.9% FLUSH 10 ML FLUSH IV FLUSH SCH (07:37)
[2017-04-18 08:00] VITALS: BP 128/69; PULSE 100; RESP 20; TEMP 97.7; O2SAT 97
[2017-04-18] MEDS: PANTOPRAZOLE SOD 40 MG DELAYED RELEASE TAB PO SCH (08:40)
[2017-04-18] MEDS: TAMSULOSIN HCL 0.4 MG CAP PO SCH (08:40)
[2017-04-18] MEDS: SUCRALFATE 1 GM TAB PO SCH ×3 (08:41→17:26)
[2017-04-18] MEDS: HYDROCHLOROTHIAZIDE 12.5 MG CAP PO SCH (08:41)
[2017-04-18] MEDS: FINASTERIDE 5 MG TAB PO SCH (08:41)
[2017-04-18] MEDS: METOPROLOL TARTRATE 50 MG TAB PO SCH (08:41)
[2017-04-18] MEDS: RANOLAZINE 500 MG EXTENDED RELEASE TAB PO SCH (08:45)
--- NOTE | 2017-04-18 11:05 | HHI.GIFU ---
GI Follow-up Note Consult Follow-up Subjective: Patient doing well . Tolerating diet. no GI bleeding Objective: PHYSICAL EXAMINATION: Vitals signs stable No fever CHEST: Chest is clear to auscultation and percussion. CARDIAC: Regular rate and rhythm with no murmur gallop or rubs. ABDOMEN: Soft, nondistended, nontender; no hepatosplenomegaly; bowel sounds are present in all four quadrants. EXTREMITIES: No edema. SKIN: no jaundice. SAMPLE PREPARATION SUPERVISOR: alert and oriented times three. Available Data (labs, X- Rays, Procedues) : last Hgb 10.8 ASSESSMENT/PLAN: 1. melena-no further bleeding noted 2. anemiahemoglobin stable 3. coronary disease/tachycardiaCardiology feels pt is high risk for procedure ( EGD) PLAN: 1. continue Carafate and PPI. Avoid NSAIDS/ASA. 2. No plans for EGD because he is high risk. Pt and family are aware of risk of missing cancer and PUD etc. 3. Pt has not bled for several days and there are no absolute guidelines when to restart Plavix especially w/o doing an EGD to guide us. Since he has to be on it (because of CAD and stents) I would restart it in the hospital and if no bleeding he can be d/c'd with F/U with Dr. Singh 4. Will sign off It was a pleasure seeing Chip Graham. Thank you for this consult. Entered by: Alo Hair MD Apr 18, 2017 11:05
[2017-04-18 12:00] VITALS: BP 104/58; PULSE 100; RESP 20; TEMP 97.4; O2SAT 98
[2017-04-18] MEDS ORDERED: CLOPIDOGREL 75 MG TAB PO ONE (15:00)
[2017-04-18 16:00] VITALS: BP 113/63; PULSE 86; RESP 20; TEMP 97.4; O2SAT 97
[2017-04-18 16:30] VITALS: BP 111/64; PULSE 88; RESP 20; TEMP 98.2; O2SAT 97
--- NOTE | 2017-04-18 16:42 | HHI.PR ---
Subjective Remarks This is a pleasant 76 y/o male admitted April 13 2017, came with one week history of black tarry stools, Dyspnea on Exertion, he is on Plavix and aspirin secondary to coronary stents placed within the past year. He also takes meloxicam on a daily basis. has Hyperlipidemia, OA, Hypertension, GERD, CAD status post CABG 1989, PCI wit stent placement x 7. seen in his bedroom in the presence of his and his Daughter and Son Mr. Kameron Graham, they want their own Primary property management specialist and will clear the situation was discussed in the room with nurse Miss Roper also at this time his Primary GI specialist doctor Alo Tafoya in to see the patient no other concern. 04/18: seen in his bedroom discussed with nurse and relatives awaiting for EGD today, then I was called as per GI no need for EGD and he recommended to re start Plavix and discharge if no bleeding but no time frame to discharge, the patient wants to go home, Paged GI specialist to decide clear discharge recommendation if possible now. Objective Vital Signs Date Time Temp Pulse Resp B/P (MAP) Pulse Ox O2 Delivery O2 Flow Rate FiO2 04/18/17 12:00 97.4 100 20 104/58 (73) 98 04/18/17 10:26 Room Air 21 04/18/17 08:00 97.7 100 20 128/69 (88) 97 04/18/17 04:00 98.7 98 16 119/72 (88) 95 04/18/17 04:00 Room Air 04/18/17 00:00 99.2 108 18 149/75 (99) 95 04/17/17 22:30 Room Air 04/17/17 20:23 117 04/17/17 20:00 98.2 105 18 146/80 (102) 98 I/O 04/17/17 04/17/17 04/17/17 04/18/17 04/18/17 04/18/17 07:00 15:00 23:00 07:00 15:00 23:00 Intake Total 620 ml 100 ml 120 ml 240 ml Output Total 1100 ml 100 ml 600 ml Balance -480 ml 100 ml 20 ml -360 ml Intake Oral 520 ml 0 ml 240 ml IV Total 100 ml 100 ml 120 ml Output Urine Total 1100 ml 100 ml 600 ml # Bowel Movements 0 0 0 Result Diagram: 04/16/17 1320 04/15/17 0429 Imaging Last Impressions Chest X-Ray 04/13/17 1605 Signed Impressions: Service Date/Time: March 17:04 - CONCLUSION: 1. No acute abnormality. Tolu Butts MD Procedures None Other Results Laboratory Tests Test 04/13/17 16:15 04/13/17 16:20 04/14/17 12:40 04/15/17 04:29 Urine Color YELLOW Urine Turbidity CLEAR Urine pH 5.5 Urine Specific [place] 1.019 Urine Protein NEG mg/dL Urine Glucose (UA) NEG mg/dL Urine Ketones NEG mg/dL Urine Occult Blood NEG Urine Nitrite NEG Urine Bilirubin NEG Urine Leukocyte Esterase NEG Urine RBC 0-3 /hpf Urine WBC 0-2 /hpf Urine Squamous Epithelial Cells 0-5 /hpf Microscopic Urinalysis Comment CULT NOT INDICATED Prothrombin Time 11.4 SEC Prothromb Time International Ratio 1.0 RATIO Activated Partial Thromboplast Time 25.4 SEC B-Type Natriuretic Peptide 184 PG/ML Total Creatine Kinase 51 U/L Troponin I 0.25 NG/ML White Blood Count 10.2 TH/MM3 Red Blood Count 3.09 MIL/MM3 Mean Corpuscular Volume 94.9 FL Mean Corpuscular Hemoglobin 32.7 PG Mean Corpuscular Hemoglobin Concent 34.4 % Red Cell Distribution Width 14.9 % Platelet Count 158 TH/MM3 Mean Platelet Volume 10.3 FL Neutrophils (%) (Auto) 74.4 % Lymphocytes (%) (Auto) 11.4 % Monocytes (%) (Auto) 10.2 % Eosinophils (%) (Auto) 3.1 % Basophils (%) (Auto) 0.9 % Neutrophils # (Auto) 7.6 TH/MM3 Lymphocytes # (Auto) 1.2 TH/MM3 Monocytes # (Auto) 1.0 TH/MM3 Eosinophils # (Auto) 0.3 TH/MM3 Basophils # (Auto) 0.1 TH/MM3 CBC Comment DIFF FINAL Differential Comment Blood Urea Nitrogen 9 MG/DL Creatinine 0.79 MG/DL Random Glucose 107 MG/DL Total Protein 6.1 GM/DL Albumin 3.4 GM/DL Calcium Level 8.4 MG/DL Alkaline Phosphatase 62 U/L Aspartate Amino Transf (AST/SGOT) 15 U/L Alanine Aminotransferase (ALT/SGPT) 18 U/L Total Bilirubin 0.7 MG/DL Sodium Level 142 MEQ/L Potassium Level 3.8 MEQ/L Chloride Level 109 MEQ/L Carbon Dioxide Level 26.0 MEQ/L Anion Gap 7 MEQ/L Estimat Glomerular Filtration Rate 96 ML/MIN Test 04/16/17 13:20 Hemoglobin 10.8 GM/DL Hematocrit 32.3 % Objective Remarks GENERAL: Alert and oriented x 3, hard of hearing. SKIN: Warm and dry. HEAD: Atraumatic. Normocephalic. EYES: Pupils equal and round. No scleral icterus. No injection or drainage. ENT: No nasal bleeding or discharge. Mucous membranes pink and moist. NECK: Trachea midline. No JVD. CARDIOVASCULAR: Regular rate and rhythm. RESPIRATORY: No accessory muscle use. Clear to auscultation. Breath sounds equal bilaterally. GASTROINTESTINAL: Abdomen soft, non-tender, nondistended. Hepatic and splenic margins not palpable. MUSCULOSKELETAL: Extremities without clubbing, cyanosis, or edema. No obvious deformities. NEUROLOGICAL: Awake and alert. No obvious cranial nerve deficits. PSYCHIATRIC: Appropriate mood and affect. Medications and IVs Current Medications Medications (Trade) Dose Ordered Sig/Misael Route Start Time Stop Time Status Last Admin (NS Flush) 2 ml UNSCH PRN IV FLUSH 04/13/17 17:45 (NS Flush) 2 ml BID IV FLUSH 04/13/17 21:00 04/18/17 07:37 (Zofran Inj) 4 mg Q6H PRN IVP 04/13/17 17:45 04/14/17 05:46 (Morphine Inj) 2 mg Q3H PRN IV PUSH 04/13/17 17:45 04/14/17 04:26 (Morphine Inj) 4 mg Q3H PRN IV PUSH 04/13/17 17:45 04/15/17 03:13 (Narcan Inj) 0.4 mg UNSCH PRN IV PUSH 04/13/17 17:45 (Vasotec Inj) 1.25 mg Q6H PRN IV PUSH 04/13/17 19:00 04/14/17 16:51 (Nitrostat Sl) 0.4 mg Q5M PRN SL 04/14/17 09:00 04/17/17 14:03 (Microzide) 12.5 mg DAILY PO 04/15/17 11:30 04/18/17 08:41 (Proscar) 5 mg DAILY PO 04/16/17 09:00 04/18/17 08:41 (Flomax) 0.4 mg DAILY PO 04/15/17 17:15 04/18/17 08:40 (Carafate) 1 gm ACHS PO 04/16/17 12:00 04/18/17 12:23 (Tylenol) 650 mg Q4H PRN PO 04/16/17 20:00 04/17/17 13:29 (Protonix) 40 mg Q12HR PO 04/17/17 21:00 04/18/17 08:40 (Nitroglycerin 2% Oint) 1 inch Q6HR TOPICAL 04/17/17 19:45 04/18/17 12:24 (Ranexa) 1,000 mg BID PO 04/17/17 21:00 04/18/17 08:45 (Lopressor) 75 mg Q12HR PO 04/17/17 21:00 04/18/17 08:41 (Pill Splitter) 1 ea UNSCH PRN OTHER 04/17/17 20:00 (Plavix) 75 mg DAILY PO 04/19/17 09:00 A/P Assessment and Plan 76-year-old male admitted secondary to GI bleed. History of coronary artery disease, angina, and old AR. Patient reports exertional chest pain overnight, he had onset of chest pain when he was trying to get up and walk to the bathroom and whenever he tries to sit up. Cardiology consulted. CAD S/P [place] stents x - october 2016 re start his Metoprolol 50 mg po bid. eventually restart his Benazepril if continues to be stable (aas OP on Benazepril 40 mg qd) Re started Plavix as per GI specialist and if no bleed will discharge Home as per Patient wants to go home now awaiting call by GI specialist for discharge if possible later today. continue statins GI bleeding Stable with no further bleeding, as per GI no EGD needed and started again on Plavix awaiting for his call to discharge the patient later today or in am tomorrow. Symptomatic anemia stable hemoglobin 10.8 Acute blood loss anemia Follow CBC. CBC today Transfuse if needed Hyperlipidemia statins Gastroesophageal reflux disease On IV Protonix for now Monitor clinically Hypertension controlled. Urinary symptoms likely underlying BPH -seen by Dr. Winters- OP ff up in 8 weeks- [phone] started on Flomax 0.4 mg po daily. Finasteride 5 mg po daily DVT prophylaxis SCDs Discharge Planning Expected later today or in am tomorrow. Ryan Ferguson MD Apr 18, 2017 16:42
[2017-04-18] MEDS ORDERED: RANO500 PO (16:46)
[2017-04-18] MEDS ORDERED: CARA1TAB6 PO (16:46)
[2017-04-18] MEDS ORDERED: METO-309 PO (16:46)
[2017-04-18] MEDS ORDERED: TAMS5CAP PO (16:46)
[2017-04-18] MEDS ORDERED: FINA5TAB2 PO (17:11)
--- NOTE | 2017-04-18 17:11 | HHI.DS ---
Discharge Summary Admission Date Apr 13, 2017 at 17:40 Discharge Date: Apr 18, 2017 Admitting Diagnosis GI BLEED, SYMPTOMATIC ANEMIA (1) Symptomatic anemia ICD Code: D64.9 - Anemia, unspecified Diagnosis: Principal (2) GI bleed ICD Code: K92.2 - Gastrointestinal hemorrhage, unspecified Diagnosis: Principal (3) Hypertension ICD Code: I10 - Essential (primary) hypertension Diagnosis: Secondary (4) Hyperlipidemia ICD Code: E78.5 - Hyperlipidemia, unspecified Diagnosis: Secondary (5) Acute blood loss anemia ICD Code: D62 - Acute posthemorrhagic anemia Diagnosis: Principal (6) Coronary artery disease ICD Code: I25.10 - Atherosclerotic heart disease of [place] coronary artery without angina pectoris Diagnosis: Principal Procedures None Brief History - From Admission Mr. Graham is a 76-year-old male. She reports a one-week history of black tarry stools. He says that recently he has become short of breath and is having difficulty doing things around the house due to his dyspnea with exertion. She has no prior history of GI bleed. However, he is on Plavix and aspirin secondary to coronary stents placed within the past year. He also takes meloxicam on a daily basis. Increased stressors have been in his life recently as his was hospitalized and on the vent for prolonged duration. He drinks alcohol socially but has not had any alcohol intake recently. No complaints of abdominal pain. No fevers, diarrhea, nausea, vomiting, or abdominal trauma. CBC/BMP: 04/16/17 1320 04/15/17 0429 Significant Findings Laboratory Tests Test 04/16/17 13:20 Hemoglobin 10.8 GM/DL (13.0-17.0) Hematocrit 32.3 % (39.0-51.0) Imaging Last Impressions Chest X-Ray 04/13/17 1605 Signed Impressions: Service Date/Time: March 17:04 - CONCLUSION: 1. No acute abnormality. Tolu Butts MD PE at Discharge GENERAL: Alert and oriented x 3, hard of hearing. SKIN: Warm and dry. HEAD: Atraumatic. Normocephalic. EYES: Pupils equal and round. No scleral icterus. No injection or drainage. ENT: No nasal bleeding or discharge. Mucous membranes pink and moist. NECK: Trachea midline. No JVD. CARDIOVASCULAR: Regular rate and rhythm. RESPIRATORY: No accessory muscle use. Clear to auscultation. Breath sounds equal bilaterally. GASTROINTESTINAL: Abdomen soft, non-tender, nondistended. Hepatic and splenic margins not palpable. MUSCULOSKELETAL: Extremities without clubbing, cyanosis, or edema. No obvious deformities. NEUROLOGICAL: Awake and alert. No obvious cranial nerve deficits. PSYCHIATRIC: Appropriate mood and affect. Hospital Course This is a pleasant 76 y/o male admitted April 13 2017, came with one week history of black tarry stools, Dyspnea on Exertion, he is on Plavix and aspirin secondary to coronary stents placed within the past year. He also takes meloxicam on a daily basis. has Hyperlipidemia, OA, Hypertension, GERD, CAD status post CABG 1989, PCI wit stent placement x 7. seen in his bedroom in the presence of his and his Daughter and Son Mr. Kameron Graham, they want their own Primary strategic debriefing specialist and will clear the situation was discussed in the room with nurse Miss Roper also at this time his Primary GI specialist doctor Alo Tafoya in to see the patient no other concern. 04/18: seen in his bedroom discussed with nurse and relatives awaiting for EGD today, then I was called as per GI no need for EGD and he recommended to re start Plavix and discharge if no bleeding but no time frame to discharge, the patient wants to go home, Paged GI specialist to decide clear discharge recommendation if possible now. Assessment and Plan 76-year-old male admitted secondary to GI bleed. History of coronary artery disease, angina, and old OR. Patient reports exertional chest pain overnight, he had onset of chest pain when he was trying to get up and walk to the bathroom and whenever he tries to sit up. Cardiology consulted. CAD S/P OR stents x - october 2016 re start his Metoprolol 50 mg po bid. eventually restart his Benazepril if continues to be stable (aas OP on Benazepril 40 mg qd) Re started Plavix as per GI specialist and if no bleed will discharge Home as per Patient wants to go home now awaiting call by GI specialist for discharge if possible later today. continue statins GI bleeding Stable with no further bleeding, as per GI no EGD needed and started again on Plavix awaiting for his call to discharge the patient later today or in am tomorrow. Symptomatic anemia stable hemoglobin 10.8 Acute blood loss anemia Follow CBC. CBC today Transfuse if needed Hyperlipidemia statins Gastroesophageal reflux disease On IV Protonix for now Monitor clinically Hypertension controlled. Urinary symptoms likely underlying BPH -seen by Dr. Winters- OP ff up in 8 weeks- [phone] started on Flomax 0.4 mg po daily. Finasteride 5 mg po daily DVT prophylaxis SCDs Discharge Planning discharge home today as per GI specialist. Pt Condition on Discharge: Good Discharge Disposition: Discharge Home Discharge Time: > 30 minutes Discharge Instructions DIET: Follow Instructions for: Heart Healthy Diet Activities you can perform: Regular-No Restrictions Ryan Ferguson MD Apr 18, 2017 17:11
[2017-04-19] MEDS ORDERED: CLOPIDOGREL 75 MG TAB PO SCH (09:00)
[2017-05-03] MEDS ORDERED: TAMS5CAP PO (11:33)
[2017-05-03] MEDS ORDERED: FINA5TAB2 PO (11:33)
== END 2017-04-18 19:04 | disposition home or self-care (01) | DRG 377 ==
LOC: PHED 14:39 → PHEDA 17:37 → OBSVTOIN 17:40 → PH3B 20:17 → N04A 04-14 17:18
PROVIDERS: ADMIT Internal Medicine; ATTEND Internal Medicine
PROC: 30253N1 (ICD-10-PCS; principal; 2017-04-13)
DX: K92.2 Gastrointestinal hemorrhage, unspecified (principal); I21.4 Non-ST elevation (NSTEMI) myocardial infarction; D62 Acute posthemorrhagic anemia; I25.110 Atherosclerotic heart disease of native coronary artery with unstable angina pectoris; I10 Essential (primary) hypertension; E78.5 Hyperlipidemia, unspecified; K21.9 Gastro-esophageal reflux disease without esophagitis; Z95.5 Presence of coronary angioplasty implant and graft; I25.2 Old myocardial infarction; M17.0 Bilateral primary osteoarthritis of knee; N40.1 Benign prostatic hyperplasia with lower urinary tract symptoms; Z79.02 Long term (current) use of antithrombotics/antiplatelets; Z79.82 Long term (current) use of aspirin; Z79.899 Other long term (current) drug therapy; Z87.891 Personal history of nicotine dependence; Z95.1 Presence of aortocoronary bypass graft
CPT/HCPCS: 36430; 71010; 80048; 80053; 81001; 82550; 83880; 84484; 85014; 85018; 85025; 85610; 85730; 86850; 86900; 86901; 86920; 93005; 96365; C9113; J2270; J2405; J7030; P9016